=== PATIENT | male | born 1965 | race Caucasian/White ===

== ENCOUNTER → 2021-06-19 14:02 | Outpatient (CLI) | payer OTHER, MEDICAID, SELFPAY ==
--- NOTE | 2021-06-19 14:04 | DI.RAD.S_ITS ---
PROCEDURE: XR LUMBAR SPINE 2-3V INDICATIONS: left hip and back pain TECHNIQUE: 3 views of the lumbar spine were acquired. COMPARISON: None. FINDINGS: Bones: 5 [id number] vertebrae are present. Trace multilevel retrolisthesis. Multilevel disc degeneration, severe at the L5-S1 level. Mild L4-L5 and L5-S1 facet joint arthropathy. No vertebral body compression fractures. Minor chronic appearing degenerative anterior wedge deformity of L1. No suspicious bony lesions. Soft tissues: Overlying bowel gas pattern is normal. No suspicious soft tissue calcifications. IMPRESSION: Multilevel spondylosis, with severe disc degeneration at the L5-S1 level. Dictated by: Parker Campoverde [facility] Interpreted: Saige Hubbard MD on 06/19/2021 at 15:11 Transcribed by: HERSON on 06/19/2021 at 15:12 Approved by: Saige Hubbard M.D. on 06/19/2021 at 17:52
--- NOTE | 2021-06-19 14:04 | DI.RAD.S_ITS ---
PROCEDURE: XR HIP W PEL IF DONE LT 2V INDICATIONS: left hip and back pain TECHNIQUE: AP pelvis with lateral view(s) of the left hip(s). COMPARISON: [facility], , XR LUMBAR SPINE 2-3V, 06/19/2021, 14:02. FINDINGS: Bones: No fractures or dislocations. Pelvic ring appears intact. No suspicious bony lesions. There is severe narrowing of the left hip joint with near bone on bone contact, subchondral sclerosis and cystic change. Periarticular osteophyte formation is present. Mild right hip joint space narrowing. Degenerative disc and facet disease involves the inferior lumbar spine. Soft tissues: The visualized bowel gas pattern is normal. No suspicious soft tissue calcifications. IMPRESSION: Severe asymmetric left hip joint degeneration. Dictated by: Parker Campoverde [facility] Interpreted: Saige Hubbard MD on 06/19/2021 at 15:01 Transcribed by: HERSON on 06/19/2021 at 15:01 Approved by: Saige Hubbard M.D. on 06/19/2021 at 17:51
== END ==
PROVIDERS: PCP Family Medicine; Referring Provider Family Medicine; Visit Provider Family Medicine
DX: M25.552 Pain in left hip (principal); M54.5 Low back pain; M16.12 Unilateral primary osteoarthritis, left hip; M47.816 Spondylosis without myelopathy or radiculopathy, lumbar region; M47.817 Spondylosis without myelopathy or radiculopathy, lumbosacral region; M51.36 Other intervertebral disc degeneration, lumbar region
CPT/HCPCS: 72100; 73502

== ENCOUNTER → 2021-06-20 07:27 | Outpatient (CLI) | payer OTHER, MEDICAID, SELFPAY ==
[2021-06-20 08:11] LABS: Add Manual Diff / Slide Review NO; Basophils Absolute Auto 0 /uL (0-100); Basophils Percent Auto 0.4 % (0-2); Eosinophils Absolute Auto 100 /uL (0-450); Eosinophils Percent Auto 2.1 % (2-4); Hematocrit 45.2 % (41-53); Hemoglobin 14.4 g/dL (13.5-17.5); Lymphocytes Absolute Auto 1800 /uL (1100-4500); Lymphocytes Percent Auto 26.2 % (25-40); Mean Corpuscular HGB Conc 31.8 % (30-36); Mean Corpuscular Hemoglobin 25.9 PG (26-34); Mean Corpuscular Volume 81.6 fL (80-100); Monocytes Absolute Auto 500 /uL (0-900); Monocytes Percent Auto 7.7 % (3-14); Neutrophils Absolute Auto 4400 /uL (1500-7000); Neutrophils Percent Auto 63.6 % (50-75); Platelet Count 249 X10^3/uL (150-400); Red Blood Cell Count 5.54 X10^6/uL (4.5-5.9); Red Cell Distribution Width 13.4 % (11.6-14.8); White Blood Cell Count 6.9 X10^3/uL (4.5-11.0)
[2021-06-20 08:25] LABS: Alanine Aminotransferase 20 IU/L (<50); Albumin 4.7 g/dL (3.5-5.0); Albumin Globulin Ratio 1.5 (1.0-2.8); Alkaline Phosphatase 81 U/L (38-126); Aspartate Aminotransferase 27 IU/L (17-59); BUN Creatinine Ratio 23.8 (6-22); Bilirubin Total 0.7 mg/dL (0.2-1.3); Blood Urea Nitrogen 19 mg/dL (9-20); Calcium 10.1 mg/dL (8.4-10.2); Carbon Dioxide 30 mmol/L (22-32); Chloride 106 mmol/L (98-107); Cholesterol 178 mg/dL (140-199); Estimated Glomerular Filt Rate > 60.0 mL/min (>60); Globulin 3.2 g/dL (1.7-4.1); Glucose 98 mg/dL (70-100); HDL Cholesterol 44 mg/dL (40-60); HEMOLYSIS < 15 (0-50); LDL Cholesterol Calculated 109 mg/dL (<100); Potassium 4.8 mmol/L (3.4-5.1); Sodium 143 mmol/L (137-145); Total Protein 7.9 g/dL (6.3-8.2); Triglycerides 126 mg/dL (35-150)
[2021-06-20 08:55] LABS: Prostate Specific Antigen Scrn 1.21 ng/mL (0.1-4.0)
== END ==
PROVIDERS: PCP Family Medicine; Referring Provider Family Medicine; Visit Provider Family Medicine
DX: B00.9 Herpesviral infection, unspecified (principal); J30.2 Other seasonal allergic rhinitis; Z12.5 Encounter for screening for malignant neoplasm of prostate; Z13.220 Encounter for screening for lipoid disorders
CPT/HCPCS: 36415; 80053; 80061; 85025; G0103

== ENCOUNTER 2021-08-19 11:15 | Outpatient (RCR) | payer OTHER, MEDICAID, SELFPAY ==
--- NOTE | 2021-07-12 15:54 | PT.OIE ---
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 Seasonal allergies Past Surgical History (Last Updated 06/20/21 @ 13:52 by Jody Hennessy) Anesthesia History of appendectomy (~1995) History of carpal tunnel release (~1991) Visit Care Team Role Provider Type Boubacar Coffman MD Attending Provider Physician Family Provider Primary Care Provider Referring Provider Specialty: Family Practice Address: [address] [place] [address] Email: [email or web address] Physical Therapy Initial Evaluation PT-OP-A Visit Information Start: 07/12/21 13:57 Freq: Status: Active Protocol: Document 07/12/21 15:30 HH (Rec: 07/12/21 15:54 [email or web address]) Out-Patient Physical Therapy Visit Information Visit Information Visit Type Initial Evaluation Visit Start Time 14:30 Visit Stop Time 15:30 Total Visit Minutes 60 Visit Number 1/ Number of ROAD WORKER Visits 0 Evaluation Information Evaluation Date 07/12/21 PT-OP-B Current Condition Start: 07/12/21 13:57 Freq: Status: Active Protocol: Document 07/12/21 15:30 HH (Rec: 07/12/21 15:54 [email or web address]) Current Condition History of Current Condition Onset Date many years ago Current Complaints L hip pain, difficulty in walking History of Current Condition Yung is a 55 yo male here for his chronic L hip pain. 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 Pt stated his pain started many years ago but significantly getting worse since last year. He has severe pressure and pinching pain 7- 8/10 anterior and lateral side of the hip. He cannot lift his leg to get in/out of the car, difficulty with sit to stand and pain with WB activities. He is currently using a SPC to walk and taking Meloxican for night pain. Prior Treatments and Tests x-ray @ l hip IMPRESSION: Severe asymmetric left hip joint degeneration. x-ray @L/S IMPRESSION: Multilevel spondylosis, with severe disc degeneration at the L5-S1 level. Future Testing and Treatments Planned pt will consult orthopedic surgeon in 07/31 PT-OP-C Subjective Start: 07/12/21 13:57 Freq: Status: Active Protocol: Document 07/12/21 15:30 HH (Rec: 07/12/21 15:54 HH [email or web address]) Patient Questionnaires Lower Extremity Functional Scale LEFS Score 23 LEFS Impairment 60 to 79% Impaired (Score 17- 31) Oswestry Low Back Index Oswestry Score 46 Oswestry Impairment 40 to 59% Impaired (Score 40- 59) OP-PT Pain Assessment Location L hip Pain Location Details anterior and lateral Intensity 7 Scale Used Numeric (0 - 10) Description Aching,Dull,Pinching,Pressure, Sharp Frequency Constant Pain Aggravating Factors ADL's,Activity,Exercise, Standing,Walking,Stair Climbing,Bending,Lifting Pain Alleviating Factors Inactivity,Position,Sitting PT-OP-D Balance Start: 07/12/21 13:57 Freq: Status: Active Protocol: Document 07/12/21 15:30 HH (Rec: 07/12/21 15:54 HH [email or web address]) Balance Tests Single Limb Standing Single Limb- Right WFL Single Limb- Left WFL PT-OP-E Functional Tests Start: 07/12/21 13:57 Freq: Status: Active Protocol: Document 07/12/21 15:30 HH (Rec: 07/12/21 15:54 [email or web address]) Functional Tests Other sit to stand Name of Test with SPC on R Comment UE push off from chair armrest and SPC to stand up PT-OP-F Manual Assessment Start: 07/12/21 13:57 Freq: Status: Active Protocol: Document 07/12/21 15:30 HH (Rec: 07/12/21 15:54 [email or web address]) Manual Assessments Soft Tissue Assessment Soft Tissue Mobility Assessment L glutes, quads and gastro complex muscle atrophy. Joint Mobility Assessment Joint Mobility Assessment significant muscle guarding noted with passive motion. PT-OP-G Mobility & Gait Start: 07/12/21 13:57 Freq: Status: Active Protocol: Document 07/12/21 15:30 HH (Rec: 07/12/21 15:54 [email or web address]) OP Gait Assessment Assistive Devices Assistive Device Straight Cane Factors Limiting Gait Function Factors Limiting Gait Function Decreased Activity Tolerance, Decreased Strength,Limited Range of Motion,Pain,Poor Balance Comments Gait Comments walk with flexed posture and WBOS (feet last turner) PT-OP-K Range of Motion Start: 07/12/21 13:57 Freq: Status: Active Protocol: Document 07/12/21 15:30 HH (Rec: 07/12/21 15:54 [email or web address]) Hip Goniometric Range of Motion Hip Right Passive Hip ROM WFL Yes Testing Position Supine Flexion w/Knee Flexed 110 Straight Leg Raise 75 Extension 22 Abduction 34 Internal Rotation 28 External Rotation 45 Left Passive Hip ROM WFL No Testing Position Supine Flexion w/Knee Flexed 90 Straight Leg Raise 25 Extension 6 Abduction 18 Internal Rotation 12 External Rotation 30 Comments pain with all ROM Hip ROM Limitations Hip ROM Limitations Soft Tissue Tightness,Muscle Weakness,Pain PT-OP-L Special Tests Start: 07/12/21 13:57 Freq: Status: Active Protocol: Document 07/12/21 15:30 HH (Rec: 07/12/21 15:54 [email or web address]) Special Tests Hip Special Tests LLD Comments LLE = 1/2 inch shorter hip traction Comments decreased pain noted. MARTHA Test Results +VE Scour Test Test Results +VE Straight Leg Raise Test Results +VE PT-OP-M Strength Start: 07/12/21 13:57 Freq: Status: Active Protocol: Document 07/12/21 15:30 HH (Rec: 07/12/21 15:54 [email or web address]) Hip Strength Hip Manual Muscle Testing Right Flexion (L2) 5 Normal Extension (S1) 5 Normal Abduction 5 Normal Adduction 5 Normal Left Flexion (L2) 2+ Poor+ Extension (S1) 3- Fair- Abduction 3- Fair- Adduction 3- Fair- Knee Strength Knee Manual Muscle Testing Right Flexion (S2) 5 Normal Extension (L3) 5 Normal Left Flexion (S2) 4- Good- Extension (L3) 4- Good- Ankle/Foot Strength Ankle and Foot Manual Muscle Testing Right Dorsiflexion (L4) 5 Normal Plantarflexion (S1) 5 Normal Left Dorsiflexion (L4) 4 Good Plantarflexion (S1) 4 Good PT-OP-Q Treatments Start: 07/12/21 13:57 Freq: Status: Active Protocol: Document 07/12/21 15:30 HH (Rec: 07/12/21 15:54 HH [email or web address]) Therapeutic Exercises Supine Exercises glute and quad set Side left Reps/Minutes 5 sec hold x 5 Comments for HEP heel slide Side left Reps/Minutes 5 x2 Comments for HEP, no discomfort mick stretch Side left Reps/Minutes 15 s hold x5 Comments PT assisted, for HEP Manual Therapy Treatment Joint Mobilizations L hip Direction inferior then lateral Grade IV Body Position Supine Comments reports good relief PT-OP-T Assessment and Plan Start: 07/12/21 13:57 Freq: Status: Active Protocol: Document 07/12/21 15:30 HH (Rec: 07/12/21 15:54 [email or web address]) Physical Therapy Assessment Rehab Potential Rehabilitation Potential Good Evaluation Complexity Number of Personal Factors/Comorbidities 1-2 Number of Body Systems Impaired 1-2 Clinical Presentation at Evaluation Stable Impairments Impairments Activity Tolerance,Balance, Functional Activities, Functional Mobility,Gait,Pain, Posture,ROM,Soft Tissue Mobility,Strength,Transfers Goals pain Impairment unable to lift his L leg up Short Term Goal (STG) pt will show improved 1/2 MMT for L hip strength so he can lift his leg up for stair climbing with step over pattern STG Duration 4 weeks Cleaning Technician Goal (LTG) pt will show improved 1 MMT for L hip strength so he can lift his leg over to get in/ over of his car LTG Duration 8 weeks gait Impairment pt uses SPC to amb Short Term Goal (STG) pt will be able to walk in the house without use of SPC STG Duration 4 weeks [facility]cf Goal (LTG) pt will be able to walk in the house and community without use of SPC LTG Duration 8 weeks LEFS Impairment pt scores 26 on LEFS Short Term Goal (STG) pt will be able to score 40 on LEFS to show improved mobility and strength STG Duration 4 weeks Cleaning Technician Goal (LTG) pt will be able to score 50 on LEFS to show improved mobility and strength LTG Duration 8 weeks Assessment Summary Assessment Yung is a 55yo male here for his chronic L hip pain. Upon assessment, pt's symptoms align with his severe hip OA from his X-ray finding. He has very limited hip ROM in all planes and weak LLE strength with obvious muscle atrophy. He does respond well with relief to L hip traction and joint mob during this session. Plan of care for Yung will be increasing L hip ROM, along with low impact strengthening ther-ex to improve his functional mobility and strength. However, due to his very easily irritable L hip , pt might need to consider joint replacement if conservative treatment fails. Physical Therapy Plan Frequency and Duration Frequency of Treatment 2x/Week Duration of Treatment 8 weeks Plan of Care Start Date 07/12/21 Plan of Care End Date 09/10/21 Therapeutic Interventions Therapeutic Interventions Aquatic Therapy,Balance Training,Gait Training,Home Exercise Program,Joint Mobilizations,Manual Therapy, Neuromuscular Re-education, Patient/Caregiver Education, Self-Care/Home Management,Soft Tissue Mobilization,Taping, Therapeutic Activities, Therapeutic Exercises Modalities Cold Pack/Ice Massage,Electric Stimulation,Hot Packs, Infrared Therapy,Iontophoresis ,Paraffin Bath,Traction- Mechanical,Ultrasound Next Visit Focus/Plan Next Note Type Treatment Note Next Visit Plan review hip stretches isometric hip add/abd LAQ, HS curl bridging biking
--- NOTE | 2021-07-12 15:55 | PT.OPPOC ---
Physical, Occupational & Speech Therapy At [facility] Current Diagnoses Pain in left hip (07/12/21) Low back pain (07/12/21) Visit Care Team Role Provider Type Boubacar Coffman MD Attending Provider Physician Family Provider Primary Care Provider Referring Provider Specialty: Family Practice Address: [address] [place] [address] Email: [email or web address] Plan Of Care PT-OP-T Assessment and Plan Start: 07/12/21 13:57 Freq: Status: Active Protocol: Document 07/12/21 15:30 HH (Rec: 07/12/21 15:54 HH [email or web address]) Physical Therapy Assessment Rehab Potential Rehabilitation Potential Good Evaluation Complexity Number of Personal Factors/Comorbidities 1-2 Number of Body Systems Impaired 1-2 Clinical Presentation at Evaluation Stable Impairments Impairments Activity Tolerance,Balance, Functional Activities, Functional Mobility,Gait,Pain, Posture,ROM,Soft Tissue Mobility,Strength,Transfers Goals pain Impairment unable to lift his L leg up Short Term Goal (STG) pt will show improved 1/2 MMT for L hip strength so he can lift his leg up for stair climbing with step over pattern STG Duration 4 weeks Milk Pasteurizer Goal (LTG) pt will show improved 1 MMT for L hip strength so he can lift his leg over to get in/ over of his car LTG Duration 8 weeks gait Impairment pt uses SPC to amb Short Term Goal (STG) pt will be able to walk in the house without use of SPC STG Duration 4 weeks Milk Pasteurizer Goal (LTG) pt will be able to walk in the house and community without use of SPC LTG Duration 8 weeks LEFS Impairment pt scores 26 on LEFS Short Term Goal (STG) pt will be able to score 40 on LEFS to show improved mobility and strength STG Duration 4 weeks Intermediate Goal (LTG) pt will be able to score 50 on LEFS to show improved mobility and strength LTG Duration 8 weeks Assessment Summary Assessment Yung is a 55yo male here for his chronic L hip pain. Upon assessment, pt's symptoms align with his severe hip OA from his X-ray finding. He has very limited hip ROM in all planes and weak LLE strength with obvious muscle atrophy. He does respond well with relief to L hip traction and joint mob during this session. Plan of care for Yung will be increasing L hip ROM, along with low impact strengthening ther-ex to improve his functional mobility and strength. However, due to his very easily irritable L hip , pt might need to consider joint replacement if conservative treatment fails. Physical Therapy Plan Frequency and Duration Frequency of Treatment 2x/Week Duration of Treatment 8 weeks Plan of Care Start Date 07/12/21 Plan of Care End Date 09/10/21 Therapeutic Interventions Therapeutic Interventions Aquatic Therapy,Balance Training,Gait Training,Home Exercise Program,Joint Mobilizations,Manual Therapy, Neuromuscular Re-education, Patient/Caregiver Education, Self-Care/Home Management,Soft Tissue Mobilization,Taping, Therapeutic Activities, Therapeutic Exercises Modalities Cold Pack/Ice Massage,Electric Stimulation,Hot Packs, Infrared Therapy,Iontophoresis ,Paraffin Bath,Traction- Mechanical,Ultrasound Next Visit Focus/Plan Next Note Type Treatment Note Next Visit Plan review hip stretches isometric hip add/abd LAQ, HS curl bridging biking Plan of Care Dates Plan of Care Start Date 07/12/21 Plan of Care End Date 09/10/21 Electronically Signed by: Zoie Villegas PT 07/12/21 [id number] Please Sign and Return: I have reviewed this Plan of Care and certify that the skilled therapy services above are required to meet the patient?s needs. Physician Signature Date Printed Name and Credentials Clinical Instructor Signature Printed Name and Credentials
--- NOTE | 2021-07-15 11:17 | PT.OTN ---
Current Diagnoses Pain in left hip (07/15/21) Low back pain (07/15/21) Physical Therapy Treatment Note PT-OP-A Visit Information Start: 07/12/21 13:57 Freq: Status: Active Protocol: Document 07/15/21 10:33 HH (Rec: 07/15/21 11:17 [id number]) Out-Patient Physical Therapy Visit Information Visit Information Visit Type Treatment Note Visit Note pt is going to see orthopedist on 07/30 Visit Start Time 10:32 Visit Stop Time 11:15 Total Visit Minutes 43 Visit Number 2/9 Number of WIRELINE SUPERVISOR Visits 0 PT-OP-B Current Condition Start: 07/12/21 13:57 Freq: Status: Active Protocol: Document 07/12/21 15:30 HH (Rec: 07/12/21 15:54 HH [email or web address]) Current Condition History of Current Condition Onset Date many years ago Current Complaints L hip pain, difficulty in walking History of Current Condition Yung is a 55 yo male here for his chronic L hip pain. 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 Pt stated his pain started many years ago but significantly getting worse since last year. He has severe pressure and pinching pain 7- 8/10 anterior and lateral side of the hip. He cannot lift his leg to get in/out of the car, difficulty with sit to stand and pain with WB activities. He is currently using a SPC to walk and taking Meloxican for night pain. Prior Treatments and Tests x-ray @ l hip IMPRESSION: Severe asymmetric left hip joint degeneration. x-ray @L/S IMPRESSION: Multilevel spondylosis, with severe disc degeneration at the L5-S1 level. Future Testing and Treatments Planned pt will consult orthopedic surgeon in 07/31 PT-OP-C Subjective Start: 07/12/21 13:57 Freq: Status: Active Protocol: Document 07/15/21 10:33 HH (Rec: 07/15/21 11:17 [id number]) OP-PT Subjective Patient Comments Patient Comments I felt pretty after last session even though there's some soreness but it was fine. But i did do a lot of steps yesterday so its a bit irritated. PT-OP-D Balance Start: 07/12/21 13:57 Freq: Status: Active Protocol: Document 07/12/21 15:30 HH (Rec: 07/12/21 15:54 [email or web address]) Balance Tests Single Limb Standing Single Limb- Right WFL Single Limb- Left WFL PT-OP-E Functional Tests Start: 07/12/21 13:57 Freq: Status: Active Protocol: Document 07/12/21 15:30 HH (Rec: 07/12/21 15:54 [email or web address]) Functional Tests Other sit to stand Name of Test with SPC on R Comment UE push off from chair armrest and SPC to stand up PT-OP-F Manual Assessment Start: 07/12/21 13:57 Freq: Status: Active Protocol: Document 07/12/21 15:30 HH (Rec: 07/12/21 15:54 [email or web address]) Manual Assessments Soft Tissue Assessment Soft Tissue Mobility Assessment L glutes, quads and gastro complex muscle atrophy. Joint Mobility Assessment Joint Mobility Assessment significant muscle guarding noted with passive motion. PT-OP-G Mobility & Gait Start: 07/12/21 13:57 Freq: Status: Active Protocol: Document 07/12/21 15:30 HH (Rec: 07/12/21 15:54 [email or web address]) OP Gait Assessment Assistive Devices Assistive Device Straight Cane Factors Limiting Gait Function Factors Limiting Gait Function Decreased Activity Tolerance, Decreased Strength,Limited Range of Motion,Pain,Poor Balance Comments Gait Comments walk with flexed posture and WBOS (feet returned telephone equipment appraiser) PT-OP-K Range of Motion Start: 07/12/21 13:57 Freq: Status: Active Protocol: Document 07/12/21 15:30 HH (Rec: 07/12/21 15:54 [email or web address]) Hip Goniometric Range of Motion Hip Right Passive Hip ROM WFL Yes Testing Position Supine Flexion w/Knee Flexed 110 Straight Leg Raise 75 Extension 22 Abduction 34 Internal Rotation 28 External Rotation 45 Left Passive Hip ROM WFL No Testing Position Supine Flexion w/Knee Flexed 90 Straight Leg Raise 25 Extension 6 Abduction 18 Internal Rotation 12 External Rotation 30 Comments pain with all ROM Hip ROM Limitations Hip ROM Limitations Soft Tissue Tightness,Muscle Weakness,Pain PT-OP-L Special Tests Start: 07/12/21 13:57 Freq: Status: Active Protocol: Document 07/12/21 15:30 HH (Rec: 07/12/21 15:54 [email or web address]) Special Tests Hip Special Tests LLD Comments LLE = 1/2 inch shorter hip traction Comments decreased pain noted. MARTHA Test Results +VE Scour Test Test Results +VE Straight Leg Raise Test Results +VE PT-OP-M Strength Start: 07/12/21 13:57 Freq: Status: Active Protocol: Document 07/12/21 15:30 HH (Rec: 07/12/21 15:54 HH [email or web address]) Hip Strength Hip Manual Muscle Testing Right Flexion (L2) 5 Normal Extension (S1) 5 Normal Abduction 5 Normal Adduction 5 Normal Left Flexion (L2) 2+ Poor+ Extension (S1) 3- Fair- Abduction 3- Fair- Adduction 3- Fair- Knee Strength Knee Manual Muscle Testing Right Flexion (S2) 5 Normal Extension (L3) 5 Normal Left Flexion (S2) 4- Good- Extension (L3) 4- Good- Ankle/Foot Strength Ankle and Foot Manual Muscle Testing Right Dorsiflexion (L4) 5 Normal Plantarflexion (S1) 5 Normal Left Dorsiflexion (L4) 4 Good Plantarflexion (S1) 4 Good PT-OP-Q Treatments Start: 07/12/21 13:57 Freq: Status: Active Protocol: Document 07/15/21 10:33 HH (Rec: 07/15/21 11:17 [id number]) Cardio Equipment Recumbent Stepper (Sci-Fit) Duration (Minutes) 10 Resistance 2 Therapeutic Exercises Supine Exercises LTR Equipment Used ball squeez in between Reps/Minutes 10 x2 Comments for HEP hip abd Side left Reps/Minutes 10 x2 Comments for HEP glute and quad set Side left Reps/Minutes 5 sec hold x 5 Comments for HEP heel slide Side left Reps/Minutes 10x2 Comments for HEP, no discomfort mick stretch Side left Reps/Minutes 15 s hold x5 Comments PT assisted to lift back up to the table, for HEP Sitting Exercises LAQ Side bilateral Equipment Used red band at ankle Reps/Minutes 10 x2 Comments for HEP Manual Therapy Treatment Joint Mobilizations L hip Direction inferior then lateral Grade IV Body Position Supine Comments reports good relief PT-OP-T Assessment and Plan Start: 07/12/21 13:57 Freq: Status: Active Protocol: Document 07/15/21 10:33 HH (Rec: 07/15/21 11:17 [id number]) Physical Therapy Assessment Goals pain Impairment unable to lift his L leg up Short Term Goal (STG) pt will show improved 1/2 MMT for L hip strength so he can lift his leg up for stair climbing with step over pattern STG Duration 4 weeks Senior Living Goal (LTG) pt will show improved 1 MMT for L hip strength so he can lift his leg over to get in/ over of his car LTG Duration 8 weeks gait Impairment pt uses SPC to amb Short Term Goal (STG) pt will be able to walk in the house without use of SPC STG Duration 4 weeks Senior Living Goal (LTG) pt will be able to walk in the house and community without use of SPC LTG Duration 8 weeks LEFS Impairment pt scores 26 on LEFS Short Term Goal (STG) pt will be able to score 40 on LEFS to show improved mobility and strength STG Duration 4 weeks Senior Living Goal (LTG) pt will be able to score 50 on LEFS to show improved mobility and strength LTG Duration 8 weeks Assessment Summary Assessment First tx session today. Introduced gentle hip ROM in gravity eliminated position followed by stepper . He feels good at the end of session with no increase in pain. Physical Therapy Plan Frequency and Duration Frequency of Treatment 2x/Week Duration of Treatment 8 weeks Plan of Care Start Date 07/12/21 Plan of Care End Date 09/10/21 Therapeutic Interventions Therapeutic Interventions Aquatic Therapy,Balance Training,Gait Training,Home Exercise Program,Joint Mobilizations,Manual Therapy, Neuromuscular Re-education, Patient/Caregiver Education, Self-Care/Home Management,Soft Tissue Mobilization,Taping, Therapeutic Activities, Therapeutic Exercises Modalities Cold Pack/Ice Massage,Electric Stimulation,Hot Packs, Infrared Therapy,Iontophoresis ,Paraffin Bath,Traction- Mechanical,Ultrasound Next Visit Focus/Plan Next Note Type Treatment Note Next Visit Plan review hip stretches isometric hip add/abd LAQ, HS curl bridging biking
--- NOTE | 2021-07-18 13:47 | PT.OTN ---
Current Diagnoses Pain in left hip (07/18/21) Low back pain (07/18/21) Physical Therapy Treatment Note PT-OP-A Visit Information Start: 07/12/21 13:57 Freq: Status: Active Protocol: Document 07/18/21 12:59 HH (Rec: 07/18/21 13:47 [id number]) Out-Patient Physical Therapy Visit Information Visit Information Visit Type Treatment Note Visit Note pt is going to see orthopedist on 07/30 Visit Start Time 13:01 Visit Stop Time 13:45 Total Visit Minutes 44 Visit Number 3/9 Number of WARP TYING MACHINE KNOTTER Visits 0 PT-OP-B Current Condition Start: 07/12/21 13:57 Freq: Status: Active Protocol: Document 07/12/21 15:30 HH (Rec: 07/12/21 15:54 HH [email or web address]) Current Condition History of Current Condition Onset Date many years ago Current Complaints L hip pain, difficulty in walking History of Current Condition Yung is a 55 yo male here for his chronic L hip pain. 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 Pt stated his pain started many years ago but significantly getting worse since last year. He has severe pressure and pinching pain 7- 8/10 anterior and lateral side of the hip. He cannot lift his leg to get in/out of the car, difficulty with sit to stand and pain with WB activities. He is currently using a SPC to walk and taking Meloxican for night pain. Prior Treatments and Tests x-ray @ l hip IMPRESSION: Severe asymmetric left hip joint degeneration. x-ray @L/S IMPRESSION: Multilevel spondylosis, with severe disc degeneration at the L5-S1 level. Future Testing and Treatments Planned pt will consult orthopedic surgeon in 07/31 PT-OP-C Subjective Start: 07/12/21 13:57 Freq: Status: Active Protocol: Document 07/18/21 12:59 HH (Rec: 07/18/21 13:47 HH [id number]) OP-PT Subjective Patient Comments Patient Comments I feel pretty good from last visit and it seems to be not bad yesterday with standing for awhile. But i always notice getting up from seated position is tough Patient Reported Progress Improving PT-OP-D Balance Start: 07/12/21 13:57 Freq: Status: Active Protocol: Document 07/12/21 15:30 HH (Rec: 07/12/21 15:54 [email or web address]) Balance Tests Single Limb Standing Single Limb- Right WFL Single Limb- Left WFL PT-OP-E Functional Tests Start: 07/12/21 13:57 Freq: Status: Active Protocol: Document 07/12/21 15:30 HH (Rec: 07/12/21 15:54 [email or web address]) Functional Tests Other sit to stand Name of Test with SPC on R Comment UE push off from chair armrest and SPC to stand up PT-OP-F Manual Assessment Start: 07/12/21 13:57 Freq: Status: Active Protocol: Document 07/12/21 15:30 HH (Rec: 07/12/21 15:54 [email or web address]) Manual Assessments Soft Tissue Assessment Soft Tissue Mobility Assessment L glutes, quads and gastro complex muscle atrophy. Joint Mobility Assessment Joint Mobility Assessment significant muscle guarding noted with passive motion. PT-OP-G Mobility & Gait Start: 07/12/21 13:57 Freq: Status: Active Protocol: Document 07/12/21 15:30 HH (Rec: 07/12/21 15:54 [email or web address]) OP Gait Assessment Assistive Devices Assistive Device Straight Cane Factors Limiting Gait Function Factors Limiting Gait Function Decreased Activity Tolerance, Decreased Strength,Limited Range of Motion,Pain,Poor Balance Comments Gait Comments walk with flexed posture and WBOS (feet bottom turning lathe tender) PT-OP-K Range of Motion Start: 07/12/21 13:57 Freq: Status: Active Protocol: Document 07/12/21 15:30 HH (Rec: 07/12/21 15:54 [email or web address]) Hip Goniometric Range of Motion Hip Right Passive Hip ROM WFL Yes Testing Position Supine Flexion w/Knee Flexed 110 Straight Leg Raise 75 Extension 22 Abduction 34 Internal Rotation 28 External Rotation 45 Left Passive Hip ROM WFL No Testing Position Supine Flexion w/Knee Flexed 90 Straight Leg Raise 25 Extension 6 Abduction 18 Internal Rotation 12 External Rotation 30 Comments pain with all ROM Hip ROM Limitations Hip ROM Limitations Soft Tissue Tightness,Muscle Weakness,Pain PT-OP-L Special Tests Start: 07/12/21 13:57 Freq: Status: Active Protocol: Document 07/12/21 15:30 HH (Rec: 07/12/21 15:54 HH [email or web address]) Special Tests Hip Special Tests LLD Comments LLE = 1/2 inch shorter hip traction Comments decreased pain noted. MARTAH Test Results +VE Scour Test Test Results +VE Straight Leg Raise Test Results +VE PT-OP-M Strength Start: 07/12/21 13:57 Freq: Status: Active Protocol: Document 07/12/21 15:30 HH (Rec: 07/12/21 15:54 HH [email or web address]) Hip Strength Hip Manual Muscle Testing Right Flexion (L2) 5 Normal Extension (S1) 5 Normal Abduction 5 Normal Adduction 5 Normal Left Flexion (L2) 2+ Poor+ Extension (S1) 3- Fair- Abduction 3- Fair- Adduction 3- Fair- Knee Strength Knee Manual Muscle Testing Right Flexion (S2) 5 Normal Extension (L3) 5 Normal Left Flexion (S2) 4- Good- Extension (L3) 4- Good- Ankle/Foot Strength Ankle and Foot Manual Muscle Testing Right Dorsiflexion (L4) 5 Normal Plantarflexion (S1) 5 Normal Left Dorsiflexion (L4) 4 Good Plantarflexion (S1) 4 Good PT-OP-Q Treatments Start: 07/12/21 13:57 Freq: Status: Active Protocol: Document 07/18/21 12:59 HH (Rec: 07/18/21 13:47 HH [id number]) Cardio Equipment Recumbent Bicycle Resistance 5 Seat Position 5 Bicycle (Upright) Duration (Minutes) 4 Resistance 5 Seat Position 7 Therapeutic Exercises Supine Exercises leg curl Equipment Used red therapy ball Reps/Minutes 8 x2 Comments hip flexion up to 90 degrees. iso clamshell Resistance yellow band on knees Reps/Minutes 10s hold x 10 Comments no dsicomfort bridging Equipment Used yellow band on knees Reps/Minutes 5 sec hold x10 Comments no dsicomfort mick stretch Side left Reps/Minutes 15 s hold x5 Comments PT assisted to lift back up to the table, for HEP Sitting Exercises LAQ Side bilateral Equipment Used 10lbs ankle weight, Reps/Minutes 10 x2, 3 sec top Comments for HEP Manual Therapy Treatment Joint Mobilizations L hip Direction inferior then lateral Grade IV Body Position Supine Comments reports good relief PT-OP-T Assessment and Plan Start: 07/12/21 13:57 Freq: Status: Active Protocol: Document 07/18/21 12:59 HH (Rec: 07/18/21 13:47 HH [id number]) Physical Therapy Assessment Goals pain Impairment unable to lift his L leg up Short Term Goal (STG) pt will show improved 1/2 MMT for L hip strength so he can lift his leg up for stair climbing with step over pattern STG Duration 4 weeks Skilled Nursing Goal (LTG) pt will show improved 1 MMT for L hip strength so he can lift his leg over to get in/ over of his car LTG Duration 8 weeks gait Impairment pt uses SPC to amb Short Term Goal (STG) pt will be able to walk in the house without use of SPC STG Duration 4 weeks Engineer Specialist Goal (LTG) pt will be able to walk in the house and community without use of SPC LTG Duration 8 weeks LEFS Impairment pt scores 26 on LEFS Short Term Goal (STG) pt will be able to score 40 on LEFS to show improved mobility and strength STG Duration 4 weeks Skilled Nursing Goal (LTG) pt will be able to score 50 on LEFS to show improved mobility and strength LTG Duration 8 weeks Assessment Summary Assessment This session focused on activating hip stabilizers and quad strengthening. Pt meliza session well with report of hip got warmed up. Physical Therapy Plan Frequency and Duration Frequency of Treatment 2x/Week Duration of Treatment 8 weeks Plan of Care Start Date 07/12/21 Plan of Care End Date 09/10/21 Therapeutic Interventions Therapeutic Interventions Aquatic Therapy,Balance Training,Gait Training,Home Exercise Program,Joint Mobilizations,Manual Therapy, Neuromuscular Re-education, Patient/Caregiver Education, Self-Care/Home Management,Soft Tissue Mobilization,Taping, Therapeutic Activities, Therapeutic Exercises Modalities Cold Pack/Ice Massage,Electric Stimulation,Hot Packs, Infrared Therapy,Iontophoresis ,Paraffin Bath,Traction- Mechanical,Ultrasound Next Visit Focus/Plan Next Note Type Treatment Note Next Visit Plan review hip stretches isometric hip add/abd LAQ, HS curl bridging biking
--- NOTE | 2021-07-22 11:21 | PT.OTN ---
Current Diagnoses Pain in left hip (07/22/21) Low back pain (07/22/21) Physical Therapy Treatment Note PT-OP-A Visit Information Start: 07/12/21 13:57 Freq: Status: Active Protocol: Document 07/22/21 10:39 HH (Rec: 07/22/21 11:21 [id number]) Out-Patient Physical Therapy Visit Information Visit Information Visit Type Treatment Note Visit Note pt is going to see orthopedist on 07/30 Visit Start Time 10:33 Visit Stop Time 11:15 Total Visit Minutes 42 Visit Number 4/9 Number of [employer] CONSULTANT Visits 0 PT-OP-B Current Condition Start: 07/12/21 13:57 Freq: Status: Active Protocol: Document 07/12/21 15:30 HH (Rec: 07/12/21 15:54 HH [email or web address]) Current Condition History of Current Condition Onset Date many years ago Current Complaints L hip pain, difficulty in walking History of Current Condition Yung is a 55 yo male here for his chronic L hip pain. 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 Pt stated his pain started many years ago but significantly getting worse since last year. He has severe pressure and pinching pain 7- 8/10 anterior and lateral side of the hip. He cannot lift his leg to get in/out of the car, difficulty with sit to stand and pain with WB activities. He is currently using a SPC to walk and taking Meloxican for night pain. Prior Treatments and Tests x-ray @ l hip IMPRESSION: Severe asymmetric left hip joint degeneration. x-ray @L/S IMPRESSION: Multilevel spondylosis, with severe disc degeneration at the L5-S1 level. Future Testing and Treatments Planned pt will consult orthopedic surgeon in 07/31 PT-OP-C Subjective Start: 07/12/21 13:57 Freq: Status: Active Protocol: Document 07/22/21 10:39 HH (Rec: 07/22/21 11:21 HH [id number]) OP-PT Subjective Patient Comments Patient Comments My hip doesnt ache as much and i can walk longer. But i mistep once on Thursday that makes me having some night pain while sleep pain. Patient Reported Progress Improving PT-OP-D Balance Start: 07/12/21 13:57 Freq: Status: Active Protocol: Document 07/12/21 15:30 HH (Rec: 07/12/21 15:54 [email or web address]) Balance Tests Single Limb Standing Single Limb- Right WFL Single Limb- Left WFL PT-OP-E Functional Tests Start: 07/12/21 13:57 Freq: Status: Active Protocol: Document 07/12/21 15:30 HH (Rec: 07/12/21 15:54 [email or web address]) Functional Tests Other sit to stand Name of Test with SPC on R Comment UE push off from chair armrest and SPC to stand up PT-OP-F Manual Assessment Start: 07/12/21 13:57 Freq: Status: Active Protocol: Document 07/12/21 15:30 HH (Rec: 07/12/21 15:54 [email or web address]) Manual Assessments Soft Tissue Assessment Soft Tissue Mobility Assessment L glutes, quads and gastro complex muscle atrophy. Joint Mobility Assessment Joint Mobility Assessment significant muscle guarding noted with passive motion. PT-OP-G Mobility & Gait Start: 07/12/21 13:57 Freq: Status: Active Protocol: Document 07/12/21 15:30 HH (Rec: 07/12/21 15:54 [email or web address]) OP Gait Assessment Assistive Devices Assistive Device Straight Cane Factors Limiting Gait Function Factors Limiting Gait Function Decreased Activity Tolerance, Decreased Strength,Limited Range of Motion,Pain,Poor Balance Comments Gait Comments walk with flexed posture and WBOS (feet lathe turner) PT-OP-K Range of Motion Start: 07/12/21 13:57 Freq: Status: Active Protocol: Document 07/12/21 15:30 HH (Rec: 07/12/21 15:54 [email or web address]) Hip Goniometric Range of Motion Hip Right Passive Hip ROM WFL Yes Testing Position Supine Flexion w/Knee Flexed 110 Straight Leg Raise 75 Extension 22 Abduction 34 Internal Rotation 28 External Rotation 45 Left Passive Hip ROM WFL No Testing Position Supine Flexion w/Knee Flexed 90 Straight Leg Raise 25 Extension 6 Abduction 18 Internal Rotation 12 External Rotation 30 Comments pain with all ROM Hip ROM Limitations Hip ROM Limitations Soft Tissue Tightness,Muscle Weakness,Pain PT-OP-L Special Tests Start: 07/12/21 13:57 Freq: Status: Active Protocol: Document 07/12/21 15:30 HH (Rec: 07/12/21 15:54 [email or web address]) Special Tests Hip Special Tests LLD Comments LLE = 1/2 inch shorter hip traction Comments decreased pain noted. MARTHA Test Results +VE Scour Test Test Results +VE Straight Leg Raise Test Results +VE PT-OP-M Strength Start: 07/12/21 13:57 Freq: Status: Active Protocol: Document 07/12/21 15:30 HH (Rec: 07/12/21 15:54 HH [email or web address]) Hip Strength Hip Manual Muscle Testing Right Flexion (L2) 5 Normal Extension (S1) 5 Normal Abduction 5 Normal Adduction 5 Normal Left Flexion (L2) 2+ Poor+ Extension (S1) 3- Fair- Abduction 3- Fair- Adduction 3- Fair- Knee Strength Knee Manual Muscle Testing Right Flexion (S2) 5 Normal Extension (L3) 5 Normal Left Flexion (S2) 4- Good- Extension (L3) 4- Good- Ankle/Foot Strength Ankle and Foot Manual Muscle Testing Right Dorsiflexion (L4) 5 Normal Plantarflexion (S1) 5 Normal Left Dorsiflexion (L4) 4 Good Plantarflexion (S1) 4 Good PT-OP-Q Treatments Start: 07/12/21 13:57 Freq: Status: Active Protocol: Document 07/22/21 10:39 HH (Rec: 07/22/21 11:21 [id number]) Gym Equipment Shuttle Recovery SL squat Resistance #37 Shuttle Recovery Platform Stable Reps/Time 15 x2 Therapeutic Exercises Supine Exercises leg curl Supine Exercise Name unilateral Equipment Used blue therapy ball Reps/Minutes 10 x2 Comments hip flexion up to 90 degrees. hip abd Supine Exercise Name on blue therapy ball Side left Reps/Minutes 10 x2 Comments for HEP Sitting Exercises LAQ Side bilateral Equipment Used 10lbs ankle weight, Reps/Minutes 10 x2, 3 sec top Comments for HEP Manual Therapy Treatment Joint Mobilizations L hip Direction inferior then lateral Grade IV Body Position Supine Comments reports good relief PT-OP-T Assessment and Plan Start: 07/12/21 13:57 Freq: Status: Active Protocol: Document 07/22/21 10:39 HH (Rec: 07/22/21 11:21 [id number]) Physical Therapy Assessment Goals pain Impairment unable to lift his L leg up Short Term Goal (STG) pt will show improved 1/2 MMT for L hip strength so he can lift his leg up for stair climbing with step over pattern STG Duration 4 weeks Mcfp Goal (LTG) pt will show improved 1 MMT for L hip strength so he can lift his leg over to get in/ over of his car LTG Duration 8 weeks gait Impairment pt uses SPC to amb Short Term Goal (STG) pt will be able to walk in the house without use of SPC STG Duration 4 weeks Mcfp Goal (LTG) pt will be able to walk in the house and community without use of SPC LTG Duration 8 weeks LEFS Impairment pt scores 26 on LEFS Short Term Goal (STG) pt will be able to score 40 on LEFS to show improved mobility and strength STG Duration 4 weeks Elevator Starter Goal (LTG) pt will be able to score 50 on LEFS to show improved mobility and strength LTG Duration 8 weeks Assessment Summary Assessment Pt stated there's good progress since evaluation with improved activity tolerance and hip mobility. Progressed to unilateral hip mobility ex (with therapy ball) and leg press today. Physical Therapy Plan Frequency and Duration Frequency of Treatment 2x/Week Duration of Treatment 8 weeks Plan of Care Start Date 07/12/21 Plan of Care End Date 09/10/21 Therapeutic Interventions Therapeutic Interventions Aquatic Therapy,Balance Training,Gait Training,Home Exercise Program,Joint Mobilizations,Manual Therapy, Neuromuscular Re-education, Patient/Caregiver Education, Self-Care/Home Management,Soft Tissue Mobilization,Taping, Therapeutic Activities, Therapeutic Exercises Modalities Cold Pack/Ice Massage,Electric Stimulation,Hot Packs, Infrared Therapy,Iontophoresis ,Paraffin Bath,Traction- Mechanical,Ultrasound Next Visit Focus/Plan Next Note Type Treatment Note Next Visit Plan review hip stretches isometric hip add/abd LAQ, HS curl bridging biking
--- NOTE | 2021-07-24 10:33 | PT.OTN ---
Current Diagnoses Pain in left hip (07/24/21) Low back pain (07/24/21) Physical Therapy Treatment Note PT-OP-A Visit Information Start: 07/12/21 13:57 Freq: Status: Active Protocol: Document 07/24/21 09:48 HH (Rec: 07/24/21 10:33 [id number]) Out-Patient Physical Therapy Visit Information Visit Information Visit Type Treatment Note Visit Note pt is going to see orthopedist on 07/30 Visit Start Time 09:47 Visit Stop Time 10:30 Total Visit Minutes 43 Visit Number 5/9 Number of CIRCLE EDGER Visits 0 PT-OP-B Current Condition Start: 07/12/21 13:57 Freq: Status: Active Protocol: Document 07/12/21 15:30 HH (Rec: 07/12/21 15:54 HH [email or web address]) Current Condition History of Current Condition Onset Date many years ago Current Complaints L hip pain, difficulty in walking History of Current Condition Yung is a 55 yo male here for his chronic L hip pain. 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 Pt stated his pain started many years ago but significantly getting worse since last year. He has severe pressure and pinching pain 7- 8/10 anterior and lateral side of the hip. He cannot lift his leg to get in/out of the car, difficulty with sit to stand and pain with WB activities. He is currently using a SPC to walk and taking Meloxican for night pain. Prior Treatments and Tests x-ray @ l hip IMPRESSION: Severe asymmetric left hip joint degeneration. x-ray @L/S IMPRESSION: Multilevel spondylosis, with severe disc degeneration at the L5-S1 level. Future Testing and Treatments Planned pt will consult orthopedic surgeon in 07/31 PT-OP-C Subjective Start: 07/12/21 13:57 Freq: Status: Active Protocol: Document 07/24/21 09:48 HH (Rec: 07/24/21 10:33 [id number]) OP-PT Subjective Patient Comments Patient Comments I felt pretty good from last time and i didnt feel much on thursday morning which is surprising. It's getting better. Patient Reported Progress Improving PT-OP-D Balance Start: 07/12/21 13:57 Freq: Status: Active Protocol: Document 07/12/21 15:30 HH (Rec: 07/12/21 15:54 [email or web address]) Balance Tests Single Limb Standing Single Limb- Right WFL Single Limb- Left WFL PT-OP-E Functional Tests Start: 07/12/21 13:57 Freq: Status: Active Protocol: Document 07/12/21 15:30 HH (Rec: 07/12/21 15:54 [email or web address]) Functional Tests Other sit to stand Name of Test with SPC on R Comment UE push off from chair armrest and SPC to stand up PT-OP-F Manual Assessment Start: 07/12/21 13:57 Freq: Status: Active Protocol: Document 07/12/21 15:30 HH (Rec: 07/12/21 15:54 [email or web address]) Manual Assessments Soft Tissue Assessment Soft Tissue Mobility Assessment L glutes, quads and gastro complex muscle atrophy. Joint Mobility Assessment Joint Mobility Assessment significant muscle guarding noted with passive motion. PT-OP-G Mobility & Gait Start: 07/12/21 13:57 Freq: Status: Active Protocol: Document 07/12/21 15:30 HH (Rec: 07/12/21 15:54 [email or web address]) OP Gait Assessment Assistive Devices Assistive Device Straight Cane Factors Limiting Gait Function Factors Limiting Gait Function Decreased Activity Tolerance, Decreased Strength,Limited Range of Motion,Pain,Poor Balance Comments Gait Comments walk with flexed posture and WBOS (feet last turner) PT-OP-K Range of Motion Start: 07/12/21 13:57 Freq: Status: Active Protocol: Document 07/12/21 15:30 HH (Rec: 07/12/21 15:54 [email or web address]) Hip Goniometric Range of Motion Hip Right Passive Hip ROM WFL Yes Testing Position Supine Flexion w/Knee Flexed 110 Straight Leg Raise 75 Extension 22 Abduction 34 Internal Rotation 28 External Rotation 45 Left Passive Hip ROM WFL No Testing Position Supine Flexion w/Knee Flexed 90 Straight Leg Raise 25 Extension 6 Abduction 18 Internal Rotation 12 External Rotation 30 Comments pain with all ROM Hip ROM Limitations Hip ROM Limitations Soft Tissue Tightness,Muscle Weakness,Pain PT-OP-L Special Tests Start: 07/12/21 13:57 Freq: Status: Active Protocol: Document 07/12/21 15:30 HH (Rec: 07/12/21 15:54 [email or web address]) Special Tests Hip Special Tests LLD Comments LLE = 1/2 inch shorter hip traction Comments decreased pain noted. MARTHA Test Results +VE Scour Test Test Results +VE Straight Leg Raise Test Results +VE PT-OP-M Strength Start: 07/12/21 13:57 Freq: Status: Active Protocol: Document 07/12/21 15:30 HH (Rec: 07/12/21 15:54 HH [email or web address]) Hip Strength Hip Manual Muscle Testing Right Flexion (L2) 5 Normal Extension (S1) 5 Normal Abduction 5 Normal Adduction 5 Normal Left Flexion (L2) 2+ Poor+ Extension (S1) 3- Fair- Abduction 3- Fair- Adduction 3- Fair- Knee Strength Knee Manual Muscle Testing Right Flexion (S2) 5 Normal Extension (L3) 5 Normal Left Flexion (S2) 4- Good- Extension (L3) 4- Good- Ankle/Foot Strength Ankle and Foot Manual Muscle Testing Right Dorsiflexion (L4) 5 Normal Plantarflexion (S1) 5 Normal Left Dorsiflexion (L4) 4 Good Plantarflexion (S1) 4 Good PT-OP-Q Treatments Start: 07/12/21 13:57 Freq: Status: Active Protocol: Document 07/24/21 09:48 HH (Rec: 07/24/21 10:33 [id number]) Cardio Equipment Bicycle (Upright) Duration (Minutes) 7 Resistance 5 Seat Position 7 Gym Equipment Shuttle Recovery SL squat Resistance #37, #50 Shuttle Recovery Platform Stable Reps/Time 15 x2 Therapeutic Exercises Supine Exercises leg curl Supine Exercise Name unilateral Equipment Used blue therapy ball Reps/Minutes 10 x2 Comments hip flexion up to 90 degrees. bridging Equipment Used yellow band on knees Reps/Minutes 5 sec hold x10 Comments no dsicomfort hip abd Supine Exercise Name on blue therapy ball Side left Reps/Minutes 10 x2 Comments for HEP Sitting Exercises LAQ Side bilateral Equipment Used 10lbs ankle weight, Reps/Minutes 10 x2, 3 sec top Comments for HEP Manual Therapy Treatment Joint Mobilizations L hip Direction inferior then lateral Grade IV Body Position Supine Comments reports good relief PT-OP-T Assessment and Plan Start: 07/12/21 13:57 Freq: Status: Active Protocol: Document 07/24/21 09:48 HH (Rec: 07/24/21 10:33 [id number]) Physical Therapy Assessment Goals pain Impairment unable to lift his L leg up Short Term Goal (STG) pt will show improved 1/2 MMT for L hip strength so he can lift his leg up for stair climbing with step over pattern STG Duration 4 weeks Assisted Goal (LTG) pt will show improved 1 MMT for L hip strength so he can lift his leg over to get in/ over of his car LTG Duration 8 weeks gait Impairment pt uses SPC to amb Short Term Goal (STG) pt will be able to walk in the house without use of SPC STG Duration 4 weeks Assisted Goal (LTG) pt will be able to walk in the house and community without use of SPC LTG Duration 8 weeks LEFS Impairment pt scores 26 on LEFS Short Term Goal (STG) pt will be able to score 40 on LEFS to show improved mobility and strength STG Duration 4 weeks Assisted Goal (LTG) pt will be able to score 50 on LEFS to show improved mobility and strength LTG Duration 8 weeks Assessment Summary Assessment Pt reports improved stiffness and pain after last session. Modified his HEP today to improve muscle activation and strnegth. He meliza clamshell, bridging and leg curl well. Physical Therapy Plan Frequency and Duration Frequency of Treatment 2x/Week Duration of Treatment 8 weeks Plan of Care Start Date 07/12/21 Plan of Care End Date 09/10/21 Therapeutic Interventions Therapeutic Interventions Aquatic Therapy,Balance Training,Gait Training,Home Exercise Program,Joint Mobilizations,Manual Therapy, Neuromuscular Re-education, Patient/Caregiver Education, Self-Care/Home Management,Soft Tissue Mobilization,Taping, Therapeutic Activities, Therapeutic Exercises Modalities Cold Pack/Ice Massage,Electric Stimulation,Hot Packs, Infrared Therapy,Iontophoresis ,Paraffin Bath,Traction- Mechanical,Ultrasound Next Visit Focus/Plan Next Note Type Treatment Note Next Visit Plan review hip stretches isometric hip add/abd LAQ, HS curl bridging biking
--- NOTE | 2021-08-02 09:43 | PT.OTN ---
Current Diagnoses Pain in left hip (08/02/21) Low back pain (08/02/21) Physical Therapy Treatment Note PT-OP-A Visit Information Start: 07/12/21 13:57 Freq: Status: Active Protocol: Document 08/02/21 08:52 HH (Rec: 08/02/21 09:43 [id number]) Out-Patient Physical Therapy Visit Information Visit Information Visit Type Treatment Note Visit Note pt is going to see orthopedist on 07/30 Visit Start Time 09:47 Visit Stop Time 10:30 Total Visit Minutes 43 Visit Number 5/9 Number of NEMATOLOGIST Visits 0 PT-OP-B Current Condition Start: 07/12/21 13:57 Freq: Status: Active Protocol: Document 07/12/21 15:30 HH (Rec: 07/12/21 15:54 HH [email or web address]) Current Condition History of Current Condition Onset Date many years ago Current Complaints L hip pain, difficulty in walking History of Current Condition Yung is a 55 yo male here for his chronic L hip pain. 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 Pt stated his pain started many years ago but significantly getting worse since last year. He has severe pressure and pinching pain 7- 8/10 anterior and lateral side of the hip. He cannot lift his leg to get in/out of the car, difficulty with sit to stand and pain with WB activities. He is currently using a SPC to walk and taking Meloxican for night pain. Prior Treatments and Tests x-ray @ l hip IMPRESSION: Severe asymmetric left hip joint degeneration. x-ray @L/S IMPRESSION: Multilevel spondylosis, with severe disc degeneration at the L5-S1 level. Future Testing and Treatments Planned pt will consult orthopedic surgeon in 07/31 PT-OP-C Subjective Start: 07/12/21 13:57 Freq: Status: Active Protocol: Document 08/02/21 08:52 HH (Rec: 08/02/21 09:43 [id number]) OP-PT Subjective Patient Comments Patient Comments I saw Dr. Brantley and im going to get a cortisone injection next thursday. And possibly hip replacement in October. I do feel pretty good sometimes. Patient Reported Progress Improving PT-OP-D Balance Start: 07/12/21 13:57 Freq: Status: Active Protocol: Document 07/12/21 15:30 HH (Rec: 07/12/21 15:54 [email or web address]) Balance Tests Single Limb Standing Single Limb- Right WFL Single Limb- Left WFL PT-OP-E Functional Tests Start: 07/12/21 13:57 Freq: Status: Active Protocol: Document 07/12/21 15:30 HH (Rec: 07/12/21 15:54 [email or web address]) Functional Tests Other sit to stand Name of Test with SPC on R Comment UE push off from chair armrest and SPC to stand up PT-OP-F Manual Assessment Start: 07/12/21 13:57 Freq: Status: Active Protocol: Document 07/12/21 15:30 HH (Rec: 07/12/21 15:54 [email or web address]) Manual Assessments Soft Tissue Assessment Soft Tissue Mobility Assessment L glutes, quads and gastro complex muscle atrophy. Joint Mobility Assessment Joint Mobility Assessment significant muscle guarding noted with passive motion. PT-OP-G Mobility & Gait Start: 07/12/21 13:57 Freq: Status: Active Protocol: Document 07/12/21 15:30 HH (Rec: 07/12/21 15:54 [email or web address]) OP Gait Assessment Assistive Devices Assistive Device Straight Cane Factors Limiting Gait Function Factors Limiting Gait Function Decreased Activity Tolerance, Decreased Strength,Limited Range of Motion,Pain,Poor Balance Comments Gait Comments walk with flexed posture and WBOS (feet return to service inspector) PT-OP-K Range of Motion Start: 07/12/21 13:57 Freq: Status: Active Protocol: Document 07/12/21 15:30 HH (Rec: 07/12/21 15:54 [email or web address]) Hip Goniometric Range of Motion Hip Right Passive Hip ROM WFL Yes Testing Position Supine Flexion w/Knee Flexed 110 Straight Leg Raise 75 Extension 22 Abduction 34 Internal Rotation 28 External Rotation 45 Left Passive Hip ROM WFL No Testing Position Supine Flexion w/Knee Flexed 90 Straight Leg Raise 25 Extension 6 Abduction 18 Internal Rotation 12 External Rotation 30 Comments pain with all ROM Hip ROM Limitations Hip ROM Limitations Soft Tissue Tightness,Muscle Weakness,Pain PT-OP-L Special Tests Start: 07/12/21 13:57 Freq: Status: Active Protocol: Document 07/12/21 15:30 HH (Rec: 07/12/21 15:54 [email or web address]) Special Tests Hip Special Tests LLD Comments LLE = 1/2 inch shorter hip traction Comments decreased pain noted. MARTHA Test Results +VE Scour Test Test Results +VE Straight Leg Raise Test Results +VE PT-OP-M Strength Start: 07/12/21 13:57 Freq: Status: Active Protocol: Document 07/12/21 15:30 HH (Rec: 07/12/21 15:54 HH [email or web address]) Hip Strength Hip Manual Muscle Testing Right Flexion (L2) 5 Normal Extension (S1) 5 Normal Abduction 5 Normal Adduction 5 Normal Left Flexion (L2) 2+ Poor+ Extension (S1) 3- Fair- Abduction 3- Fair- Adduction 3- Fair- Knee Strength Knee Manual Muscle Testing Right Flexion (S2) 5 Normal Extension (L3) 5 Normal Left Flexion (S2) 4- Good- Extension (L3) 4- Good- Ankle/Foot Strength Ankle and Foot Manual Muscle Testing Right Dorsiflexion (L4) 5 Normal Plantarflexion (S1) 5 Normal Left Dorsiflexion (L4) 4 Good Plantarflexion (S1) 4 Good PT-OP-Q Treatments Start: 07/12/21 13:57 Freq: Status: Active Protocol: Document 08/02/21 08:52 HH (Rec: 08/02/21 09:43 [id number]) Cardio Equipment Bicycle (Upright) Duration (Minutes) 7 Resistance 5 Seat Position 7 Gym Equipment Shuttle Recovery SL squat Resistance #50 Shuttle Recovery Platform Stable Reps/Time 15 x3 Therapeutic Exercises Supine Exercises hip flexion Side left Reps/Minutes 8x2 Comments with knee bent, half range bridging Equipment Used yellow band on knees Reps/Minutes 5 sec hold x10 Comments no dsicomfort Sidelying Exercises clamshell Side left Reps/Minutes 10 x2 Comments for HEP. Sitting Exercises LAQ Side bilateral Equipment Used 10lbs ankle weight, Reps/Minutes 10 x2, 3 sec top Comments for HEP Standing Exercises uni hip extension Standing Exercise Name hands on table for support Side bilateral Reps/Minutes 10 x3 Comments for HEP Manual Therapy Treatment Joint Mobilizations L hip Direction inferior then lateral Grade IV Body Position Supine Comments reports good relief PT-OP-T Assessment and Plan Start: 07/12/21 13:57 Freq: Status: Active Protocol: Document 08/02/21 08:52 HH (Rec: 08/02/21 09:43 [id number]) Physical Therapy Assessment Goals pain Impairment unable to lift his L leg up Short Term Goal (STG) pt will show improved 1/2 MMT for L hip strength so he can lift his leg up for stair climbing with step over pattern STG Duration 4 weeks Mcc Goal (LTG) pt will show improved 1 MMT for L hip strength so he can lift his leg over to get in/ over of his car LTG Duration 8 weeks gait Impairment pt uses SPC to amb Short Term Goal (STG) pt will be able to walk in the house without use of SPC STG Duration 4 weeks Mcc Goal (LTG) pt will be able to walk in the house and community without use of SPC LTG Duration 8 weeks LEFS Impairment pt scores 26 on LEFS Short Term Goal (STG) pt will be able to score 40 on LEFS to show improved mobility and strength STG Duration 4 weeks Mcc Goal (LTG) pt will be able to score 50 on LEFS to show improved mobility and strength LTG Duration 8 weeks Assessment Summary Assessment pt will get a cortisone shot next week and possible THIAGO in October. He reports he does have less stiffness and more mobility sometimes which is helpful. Progress his hep to active hip flexion in supine and standing donkey kick. Physical Therapy Plan Frequency and Duration Frequency of Treatment 2x/Week Duration of Treatment 8 weeks Plan of Care Start Date 07/12/21 Plan of Care End Date 09/10/21 Therapeutic Interventions Therapeutic Interventions Aquatic Therapy,Balance Training,Gait Training,Home Exercise Program,Joint Mobilizations,Manual Therapy, Neuromuscular Re-education, Patient/Caregiver Education, Self-Care/Home Management,Soft Tissue Mobilization,Taping, Therapeutic Activities, Therapeutic Exercises Modalities Cold Pack/Ice Massage,Electric Stimulation,Hot Packs, Infrared Therapy,Iontophoresis ,Paraffin Bath,Traction- Mechanical,Ultrasound Next Visit Focus/Plan Next Note Type Treatment Note Next Visit Plan review hip stretches isometric hip add/abd LAQ, HS curl bridging biking
--- NOTE | 2021-08-07 12:09 | PT.OTN ---
Current Diagnoses Pain in left hip (08/07/21) Low back pain (08/07/21) Physical Therapy Treatment Note PT-OP-A Visit Information Start: 07/12/21 13:57 Freq: Status: Active Protocol: Document 08/02/21 08:52 HH (Rec: 08/02/21 09:43 [id number]) Out-Patient Physical Therapy Visit Information Visit Information Visit Type Treatment Note Visit Note pt is going to see orthopedist on 07/30 Visit Start Time 09:47 Visit Stop Time 10:30 Total Visit Minutes 43 Visit Number 5/9 Number of SPOT FACER Visits 0 PT-OP-B Current Condition Start: 07/12/21 13:57 Freq: Status: Active Protocol: Document 07/12/21 15:30 HH (Rec: 07/12/21 15:54 HH [email or web address]) Current Condition History of Current Condition Onset Date many years ago Current Complaints L hip pain, difficulty in walking History of Current Condition Yung is a 55 yo male here for his chronic L hip pain. 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 Pt stated his pain started many years ago but significantly getting worse since last year. He has severe pressure and pinching pain 7- 8/10 anterior and lateral side of the hip. He cannot lift his leg to get in/out of the car, difficulty with sit to stand and pain with WB activities. He is currently using a SPC to walk and taking Meloxican for night pain. Prior Treatments and Tests x-ray @ l hip IMPRESSION: Severe asymmetric left hip joint degeneration. x-ray @L/S IMPRESSION: Multilevel spondylosis, with severe disc degeneration at the L5-S1 level. Future Testing and Treatments Planned pt will consult orthopedic surgeon in 07/31 PT-OP-C Subjective Start: 07/12/21 13:57 Freq: Status: Active Protocol: Document 08/02/21 08:52 HH (Rec: 08/02/21 09:43 [id number]) OP-PT Subjective Patient Comments Patient Comments I saw Dr. Brantley and im going to get a cortisone injection next thursday. And possibly hip replacement in October. I do feel pretty good sometimes. Patient Reported Progress Improving PT-OP-D Balance Start: 07/12/21 13:57 Freq: Status: Active Protocol: Document 07/12/21 15:30 HH (Rec: 07/12/21 15:54 [email or web address]) Balance Tests Single Limb Standing Single Limb- Right WFL Single Limb- Left WFL PT-OP-E Functional Tests Start: 07/12/21 13:57 Freq: Status: Active Protocol: Document 07/12/21 15:30 HH (Rec: 07/12/21 15:54 [email or web address]) Functional Tests Other sit to stand Name of Test with SPC on R Comment UE push off from chair armrest and SPC to stand up PT-OP-F Manual Assessment Start: 07/12/21 13:57 Freq: Status: Active Protocol: Document 07/12/21 15:30 HH (Rec: 07/12/21 15:54 [email or web address]) Manual Assessments Soft Tissue Assessment Soft Tissue Mobility Assessment L glutes, quads and gastro complex muscle atrophy. Joint Mobility Assessment Joint Mobility Assessment significant muscle guarding noted with passive motion. PT-OP-G Mobility & Gait Start: 07/12/21 13:57 Freq: Status: Active Protocol: Document 07/12/21 15:30 HH (Rec: 07/12/21 15:54 [email or web address]) OP Gait Assessment Assistive Devices Assistive Device Straight Cane Factors Limiting Gait Function Factors Limiting Gait Function Decreased Activity Tolerance, Decreased Strength,Limited Range of Motion,Pain,Poor Balance Comments Gait Comments walk with flexed posture and WBOS (feet cross tie turner) PT-OP-K Range of Motion Start: 07/12/21 13:57 Freq: Status: Active Protocol: Document 07/12/21 15:30 HH (Rec: 07/12/21 15:54 [email or web address]) Hip Goniometric Range of Motion Hip Right Passive Hip ROM WFL Yes Testing Position Supine Flexion w/Knee Flexed 110 Straight Leg Raise 75 Extension 22 Abduction 34 Internal Rotation 28 External Rotation 45 Left Passive Hip ROM WFL No Testing Position Supine Flexion w/Knee Flexed 90 Straight Leg Raise 25 Extension 6 Abduction 18 Internal Rotation 12 External Rotation 30 Comments pain with all ROM Hip ROM Limitations Hip ROM Limitations Soft Tissue Tightness,Muscle Weakness,Pain PT-OP-L Special Tests Start: 07/12/21 13:57 Freq: Status: Active Protocol: Document 07/12/21 15:30 HH (Rec: 07/12/21 15:54 [email or web address]) Special Tests Hip Special Tests LLD Comments LLE = 1/2 inch shorter hip traction Comments decreased pain noted. MARTHA Test Results +VE Scour Test Test Results +VE Straight Leg Raise Test Results +VE PT-OP-M Strength Start: 07/12/21 13:57 Freq: Status: Active Protocol: Document 07/12/21 15:30 HH (Rec: 07/12/21 15:54 HH [email or web address]) Hip Strength Hip Manual Muscle Testing Right Flexion (L2) 5 Normal Extension (S1) 5 Normal Abduction 5 Normal Adduction 5 Normal Left Flexion (L2) 2+ Poor+ Extension (S1) 3- Fair- Abduction 3- Fair- Adduction 3- Fair- Knee Strength Knee Manual Muscle Testing Right Flexion (S2) 5 Normal Extension (L3) 5 Normal Left Flexion (S2) 4- Good- Extension (L3) 4- Good- Ankle/Foot Strength Ankle and Foot Manual Muscle Testing Right Dorsiflexion (L4) 5 Normal Plantarflexion (S1) 5 Normal Left Dorsiflexion (L4) 4 Good Plantarflexion (S1) 4 Good PT-OP-Q Treatments Start: 07/12/21 13:57 Freq: Status: Active Protocol: Document 08/02/21 08:52 HH (Rec: 08/02/21 09:43 [id number]) Cardio Equipment Bicycle (Upright) Duration (Minutes) 7 Resistance 5 Seat Position 7 Gym Equipment Shuttle Recovery SL squat Resistance #50 Shuttle Recovery Platform Stable Reps/Time 15 x3 Therapeutic Exercises Supine Exercises hip flexion Side left Reps/Minutes 8x2 Comments with knee bent, half range bridging Equipment Used yellow band on knees Reps/Minutes 5 sec hold x10 Comments no dsicomfort Sidelying Exercises clamshell Side left Reps/Minutes 10 x2 Comments for HEP. Sitting Exercises LAQ Side bilateral Equipment Used 10lbs ankle weight, Reps/Minutes 10 x2, 3 sec top Comments for HEP Standing Exercises uni hip extension Standing Exercise Name hands on table for support Side bilateral Reps/Minutes 10 x3 Comments for HEP Manual Therapy Treatment Joint Mobilizations L hip Direction inferior then lateral Grade IV Body Position Supine Comments reports good relief PT-OP-T Assessment and Plan Start: 07/12/21 13:57 Freq: Status: Active Protocol: Document 08/02/21 08:52 HH (Rec: 08/02/21 09:43 [id number]) Physical Therapy Assessment Goals pain Impairment unable to lift his L leg up Short Term Goal (STG) pt will show improved 1/2 MMT for L hip strength so he can lift his leg up for stair climbing with step over pattern STG Duration 4 weeks Long-Term Goal (LTG) pt will show improved 1 MMT for L hip strength so he can lift his leg over to get in/ over of his car LTG Duration 8 weeks gait Impairment pt uses SPC to amb Short Term Goal (STG) pt will be able to walk in the house without use of SPC STG Duration 4 weeks Long-Term Goal (LTG) pt will be able to walk in the house and community without use of SPC LTG Duration 8 weeks LEFS Impairment pt scores 26 on LEFS Short Term Goal (STG) pt will be able to score 40 on LEFS to show improved mobility and strength STG Duration 4 weeks Long-Term Goal (LTG) pt will be able to score 50 on LEFS to show improved mobility and strength LTG Duration 8 weeks Assessment Summary Assessment pt will get a cortisone shot next week and possible THIAGO in October. He reports he does have less stiffness and more mobility sometimes which is helpful. Progress his hep to active hip flexion in supine and standing donkey kick. Physical Therapy Plan Frequency and Duration Frequency of Treatment 2x/Week Duration of Treatment 8 weeks Plan of Care Start Date 07/12/21 Plan of Care End Date 09/10/21 Therapeutic Interventions Therapeutic Interventions Aquatic Therapy,Balance Training,Gait Training,Home Exercise Program,Joint Mobilizations,Manual Therapy, Neuromuscular Re-education, Patient/Caregiver Education, Self-Care/Home Management,Soft Tissue Mobilization,Taping, Therapeutic Activities, Therapeutic Exercises Modalities Cold Pack/Ice Massage,Electric Stimulation,Hot Packs, Infrared Therapy,Iontophoresis ,Paraffin Bath,Traction- Mechanical,Ultrasound Next Visit Focus/Plan Next Note Type Treatment Note Next Visit Plan review hip stretches isometric hip add/abd LAQ, HS curl bridging biking
--- NOTE | 2021-08-07 12:14 | PT.OTN ---
Current Diagnoses Pain in left hip (08/07/21) Low back pain (08/07/21) Physical Therapy Treatment Note PT-OP-A Visit Information Start: 07/12/21 13:57 Freq: Status: Active Protocol: Document 08/07/21 11:18 HH (Rec: 08/07/21 12:14 [id number]) Out-Patient Physical Therapy Visit Information Visit Information Visit Type Treatment Note Visit Note pt is going to see orthopedist on 07/30 Visit Start Time 11:16 Visit Stop Time 12:00 Total Visit Minutes 44 Visit Number 6/9 Number of WET SUIT GLUER Visits 0 PT-OP-B Current Condition Start: 07/12/21 13:57 Freq: Status: Active Protocol: Document 07/12/21 15:30 HH (Rec: 07/12/21 15:54 [email or web address]) Current Condition History of Current Condition Onset Date many years ago Current Complaints L hip pain, difficulty in walking History of Current Condition Yung is a 55 yo male here for his chronic L hip pain. 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 Pt stated his pain started many years ago but significantly getting worse since last year. He has severe pressure and pinching pain 7- 8/10 anterior and lateral side of the hip. He cannot lift his leg to get in/out of the car, difficulty with sit to stand and pain with WB activities. He is currently using a SPC to walk and taking Meloxican for night pain. Prior Treatments and Tests x-ray @ l hip IMPRESSION: Severe asymmetric left hip joint degeneration. x-ray @L/S IMPRESSION: Multilevel spondylosis, with severe disc degeneration at the L5-S1 level. Future Testing and Treatments Planned pt will consult orthopedic surgeon in 07/31 PT-OP-C Subjective Start: 07/12/21 13:57 Freq: Status: Active Protocol: Document 08/07/21 11:18 HH (Rec: 08/07/21 12:14 [id number]) OP-PT Subjective Patient Comments Patient Comments My hip is doing not bad. Clamshell and leg raise is hard cause i have no strength and limited range. Patient Reported Progress Same PT-OP-D Balance Start: 07/12/21 13:57 Freq: Status: Active Protocol: Document 07/12/21 15:30 HH (Rec: 07/12/21 15:54 HH [email or web address]) Balance Tests Single Limb Standing Single Limb- Right WFL Single Limb- Left WFL PT-OP-E Functional Tests Start: 07/12/21 13:57 Freq: Status: Active Protocol: Document 07/12/21 15:30 HH (Rec: 07/12/21 15:54 [email or web address]) Functional Tests Other sit to stand Name of Test with SPC on R Comment UE push off from chair armrest and SPC to stand up PT-OP-F Manual Assessment Start: 07/12/21 13:57 Freq: Status: Active Protocol: Document 07/12/21 15:30 HH (Rec: 07/12/21 15:54 [email or web address]) Manual Assessments Soft Tissue Assessment Soft Tissue Mobility Assessment L glutes, quads and gastro complex muscle atrophy. Joint Mobility Assessment Joint Mobility Assessment significant muscle guarding noted with passive motion. PT-OP-G Mobility & Gait Start: 07/12/21 13:57 Freq: Status: Active Protocol: Document 07/12/21 15:30 HH (Rec: 07/12/21 15:54 [email or web address]) OP Gait Assessment Assistive Devices Assistive Device Straight Cane Factors Limiting Gait Function Factors Limiting Gait Function Decreased Activity Tolerance, Decreased Strength,Limited Range of Motion,Pain,Poor Balance Comments Gait Comments walk with flexed posture and WBOS (feet turner off) PT-OP-K Range of Motion Start: 07/12/21 13:57 Freq: Status: Active Protocol: Document 07/12/21 15:30 HH (Rec: 07/12/21 15:54 [email or web address]) Hip Goniometric Range of Motion Hip Right Passive Hip ROM WFL Yes Testing Position Supine Flexion w/Knee Flexed 110 Straight Leg Raise 75 Extension 22 Abduction 34 Internal Rotation 28 External Rotation 45 Left Passive Hip ROM WFL No Testing Position Supine Flexion w/Knee Flexed 90 Straight Leg Raise 25 Extension 6 Abduction 18 Internal Rotation 12 External Rotation 30 Comments pain with all ROM Hip ROM Limitations Hip ROM Limitations Soft Tissue Tightness,Muscle Weakness,Pain PT-OP-L Special Tests Start: 07/12/21 13:57 Freq: Status: Active Protocol: Document 07/12/21 15:30 HH (Rec: 07/12/21 15:54 [email or web address]) Special Tests Hip Special Tests LLD Comments LLE = 1/2 inch shorter hip traction Comments decreased pain noted. MARTHA Test Results +VE Scour Test Test Results +VE Straight Leg Raise Test Results +VE PT-OP-M Strength Start: 07/12/21 13:57 Freq: Status: Active Protocol: Document 07/12/21 15:30 HH (Rec: 07/12/21 15:54 HH [email or web address]) Hip Strength Hip Manual Muscle Testing Right Flexion (L2) 5 Normal Extension (S1) 5 Normal Abduction 5 Normal Adduction 5 Normal Left Flexion (L2) 2+ Poor+ Extension (S1) 3- Fair- Abduction 3- Fair- Adduction 3- Fair- Knee Strength Knee Manual Muscle Testing Right Flexion (S2) 5 Normal Extension (L3) 5 Normal Left Flexion (S2) 4- Good- Extension (L3) 4- Good- Ankle/Foot Strength Ankle and Foot Manual Muscle Testing Right Dorsiflexion (L4) 5 Normal Plantarflexion (S1) 5 Normal Left Dorsiflexion (L4) 4 Good Plantarflexion (S1) 4 Good PT-OP-Q Treatments Start: 07/12/21 13:57 Freq: Status: Active Protocol: Document 08/07/21 11:18 HH (Rec: 08/07/21 12:14 [id number]) Cardio Equipment Bicycle (Upright) Duration (Minutes) 7 Resistance 5 Seat Position 7 Therapeutic Exercises Sidelying Exercises clamshell Side left Reps/Minutes 10 x2 Comments for HEP. Standing Exercises mini squat Standing Exercise Name chair + 4 inch box and blue foam Reps/Minutes 8 x2 Comments for HEP, min discomfort. hip mobilization Standing Exercise Name posterior glide and inferior glide Side left Reps/Minutes level 5 band Comments for home use uni hip extension Standing Exercise Name hands on table for support Side bilateral Reps/Minutes 10 x3 Comments for HEP Manual Therapy Treatment Joint Mobilizations L hip Direction inferior then lateral Grade IV Body Position Supine Comments reports good relief PT-OP-T Assessment and Plan Start: 07/12/21 13:57 Freq: Status: Active Protocol: Document 08/07/21 11:18 HH (Rec: 08/07/21 12:14 [id number]) Physical Therapy Assessment Goals pain Impairment unable to lift his L leg up Short Term Goal (STG) pt will show improved 1/2 MMT for L hip strength so he can lift his leg up for stair climbing with step over pattern STG Duration 4 weeks Net Mender Goal (LTG) pt will show improved 1 MMT for L hip strength so he can lift his leg over to get in/ over of his car LTG Duration 8 weeks gait Impairment pt uses SPC to amb Short Term Goal (STG) pt will be able to walk in the house without use of SPC STG Duration 4 weeks Net Mender Goal (LTG) pt will be able to walk in the house and community without use of SPC LTG Duration 8 weeks LEFS Impairment pt scores 26 on LEFS Short Term Goal (STG) pt will be able to score 40 on LEFS to show improved mobility and strength STG Duration 4 weeks Halfway Goal (LTG) pt will be able to score 50 on LEFS to show improved mobility and strength LTG Duration 8 weeks Assessment Summary Assessment pt reports his pain is mostly during his hip in FADDIR and full extension positions. Special test shows pt has possible anterior labral tear as well. Spent time educating pt to do self hip mobilization with resistance band. Added mini squat to improve his WB tolerance. Physical Therapy Plan Frequency and Duration Frequency of Treatment 2x/Week Duration of Treatment 8 weeks Plan of Care Start Date 07/12/21 Plan of Care End Date 09/10/21 Therapeutic Interventions Therapeutic Interventions Aquatic Therapy,Balance Training,Gait Training,Home Exercise Program,Joint Mobilizations,Manual Therapy, Neuromuscular Re-education, Patient/Caregiver Education, Self-Care/Home Management,Soft Tissue Mobilization,Taping, Therapeutic Activities, Therapeutic Exercises Modalities Cold Pack/Ice Massage,Electric Stimulation,Hot Packs, Infrared Therapy,Iontophoresis ,Paraffin Bath,Traction- Mechanical,Ultrasound Next Visit Focus/Plan Next Note Type Treatment Note Next Visit Plan review hip stretches isometric hip add/abd LAQ, HS curl bridging biking
--- NOTE | 2021-08-14 12:10 | PT.OTN ---
Current Diagnoses Pain in left hip (08/14/21) Low back pain (08/14/21) Physical Therapy Treatment Note PT-OP-A Visit Information Start: 07/12/21 13:57 Freq: Status: Active Protocol: Document 08/14/21 11:18 HH (Rec: 08/14/21 12:10 [id number]) Out-Patient Physical Therapy Visit Information Visit Information Visit Type Treatment Note Visit Start Time 11:17 Visit Stop Time 12:00 Total Visit Minutes 43 Visit Number 7/9 Number of [facility] Visits [facility] PT-OP-B Current Condition Start: 07/12/21 13:57 Freq: Status: Active Protocol: Document 07/12/21 15:30 HH (Rec: 07/12/21 15:54 [email or web address]) Current Condition History of Current Condition Onset Date many years ago Current Complaints L hip pain, difficulty in walking History of Current Condition Yung is a 55 yo male here for his chronic L hip pain. 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 Pt stated his pain started many years ago but significantly getting worse since last year. He has severe pressure and pinching pain 7- 8/10 anterior and lateral side of the hip. He cannot lift his leg to get in/out of the car, difficulty with sit to stand and pain with WB activities. He is currently using a SPC to walk and taking Meloxican for night pain. Prior Treatments and Tests x-ray @ l hip IMPRESSION: Severe asymmetric left hip joint degeneration. x-ray @L/S IMPRESSION: Multilevel spondylosis, with severe disc degeneration at the L5-S1 level. Future Testing and Treatments Planned pt will consult orthopedic surgeon in 07/31 PT-OP-C Subjective Start: 07/12/21 13:57 Freq: Status: Active Protocol: Document 08/14/21 11:18 HH (Rec: 08/14/21 12:10 [id number]) OP-PT Subjective Patient Comments Patient Comments I got the steroid shot on Thursday and i felt good for the first few days. But it was very painful during the weekend. But then i feel a little better now. Patient Reported Progress Same PT-OP-D Balance Start: 07/12/21 13:57 Freq: Status: Active Protocol: Document 07/12/21 15:30 HH (Rec: 07/12/21 15:54 [email or web address]) Balance Tests Single Limb Standing Single Limb- Right WFL Single Limb- Left WFL PT-OP-E Functional Tests Start: 07/12/21 13:57 Freq: Status: Active Protocol: Document 07/12/21 15:30 HH (Rec: 07/12/21 15:54 [email or web address]) Functional Tests Other sit to stand Name of Test with SPC on R Comment UE push off from chair armrest and SPC to stand up PT-OP-F Manual Assessment Start: 07/12/21 13:57 Freq: Status: Active Protocol: Document 07/12/21 15:30 HH (Rec: 07/12/21 15:54 [email or web address]) Manual Assessments Soft Tissue Assessment Soft Tissue Mobility Assessment L glutes, quads and gastro complex muscle atrophy. Joint Mobility Assessment Joint Mobility Assessment significant muscle guarding noted with passive motion. 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) PT-OP-K Range of Motion Start: 07/12/21 13:57 Freq: Status: Active Protocol: Document 07/12/21 15:30 HH (Rec: 07/12/21 15:54 [email or web address]) Hip Goniometric Range of Motion Hip Right Passive Hip ROM WFL Yes Testing Position Supine Flexion w/Knee Flexed 110 Straight Leg Raise 75 Extension 22 Abduction 34 Internal Rotation 28 External Rotation 45 Left Passive Hip ROM WFL No Testing Position Supine Flexion w/Knee Flexed 90 Straight Leg Raise 25 Extension 6 Abduction 18 Internal Rotation 12 External Rotation 30 Comments pain with all ROM Hip ROM Limitations Hip ROM Limitations Soft Tissue Tightness,Muscle Weakness,Pain PT-OP-L Special Tests Start: 07/12/21 13:57 Freq: Status: Active Protocol: Document 07/12/21 15:30 HH (Rec: 07/12/21 15:54 [email or web address]) Special Tests Hip Special Tests LLD Comments LLE = 1/2 inch shorter hip traction Comments decreased pain noted. MARTHA Test Results +VE Scour Test Test Results +VE Straight Leg Raise Test Results +VE PT-OP-M Strength Start: 07/12/21 13:57 Freq: Status: Active Protocol: Document 07/12/21 15:30 HH (Rec: 07/12/21 15:54 HH [email or web address]) Hip Strength Hip Manual Muscle Testing Right Flexion (L2) 5 Normal Extension (S1) 5 Normal Abduction 5 Normal Adduction 5 Normal Left Flexion (L2) 2+ Poor+ Extension (S1) 3- Fair- Abduction 3- Fair- Adduction 3- Fair- Knee Strength Knee Manual Muscle Testing Right Flexion (S2) 5 Normal Extension (L3) 5 Normal Left Flexion (S2) 4- Good- Extension (L3) 4- Good- Ankle/Foot Strength Ankle and Foot Manual Muscle Testing Right Dorsiflexion (L4) 5 Normal Plantarflexion (S1) 5 Normal Left Dorsiflexion (L4) 4 Good Plantarflexion (S1) 4 Good PT-OP-Q Treatments Start: 07/12/21 13:57 Freq: Status: Active Protocol: Document 08/14/21 11:18 HH (Rec: 08/14/21 12:10 [id number]) Cardio Equipment Bicycle (Upright) Duration (Minutes) 7 Resistance 5 Seat Position 7 Gym Equipment Shuttle Recovery SL squat Resistance #50 Shuttle Recovery Platform Stable Reps/Time 15 x3 Therapeutic Exercises Supine Exercises leg curl Supine Exercise Name unilateral Equipment Used blue therapy ball Reps/Minutes 10 x2 Comments hip flexion up to 90 degrees. Standing Exercises uni hip extension Standing Exercise Name hands on table for support, with hip abd Side bilateral Reps/Minutes 10 x3 Comments for HEP, cues on posterior pelvic tilt Manual Therapy Treatment Joint Mobilizations L hip Direction inferior then lateral Grade IV Body Position Supine Comments reports good relief PT-OP-T Assessment and Plan Start: 07/12/21 13:57 Freq: Status: Active Protocol: Document 08/14/21 11:18 HH (Rec: 08/14/21 12:10 [id number]) Physical Therapy Assessment Goals pain Impairment unable to lift his L leg up Short Term Goal (STG) pt will show improved 1/2 MMT for L hip strength so he can lift his leg up for stair climbing with step over pattern STG Duration 4 weeks [facility] Goal (LTG) pt will show improved 1 MMT for L hip strength so he can lift his leg over to get in/ over of his car LTG Duration 8 weeks gait Impairment pt uses SPC to amb Short Term Goal (STG) pt will be able to walk in the house without use of SPC STG Duration 4 weeks [facility] Goal (LTG) pt will be able to walk in the house and community without use of SPC LTG Duration 8 weeks LEFS Impairment pt scores 26 on LEFS Short Term Goal (STG) pt will be able to score 40 on LEFS to show improved mobility and strength STG Duration 4 weeks [facility] Goal (LTG) pt will be able to score 50 on LEFS to show improved mobility and strength LTG Duration 8 weeks Assessment Summary Assessment pt had his first cortisone shot last with good result so far. Added standing hip abduction today to his HEP . pt has good understanding with his HEP and progression so far and he believes he can continue on his own prior to his THIAGO in October. might consider DC next visit. Will provide preop THIAGO booklet next time. Physical Therapy Plan Frequency and Duration Frequency of Treatment 2x/Week Duration of Treatment 8 weeks Plan of Care Start Date 07/12/21 Plan of Care End Date 09/10/21 Therapeutic Interventions Therapeutic Interventions Aquatic Therapy,Balance Training,Gait Training,Home Exercise Program,Joint Mobilizations,Manual Therapy, Neuromuscular Re-education, Patient/Caregiver Education, Self-Care/Home Management,Soft Tissue Mobilization,Taping, Therapeutic Activities, Therapeutic Exercises Modalities Cold Pack/Ice Massage,Electric Stimulation,Hot Packs, Infrared Therapy,Iontophoresis ,Paraffin Bath,Traction- Mechanical,Ultrasound Next Visit Focus/Plan Next Note Type Treatment Note Next Visit Plan review hip stretches isometric hip add/abd LAQ, HS curl bridging biking
--- NOTE | 2021-08-19 12:09 | PT.OTN ---
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 Pt stated his pain started many years ago but significantly getting worse since last year. He has severe pressure and pinching pain 7- 8/10 anterior and lateral side of the hip. He cannot lift his leg to get in/out of the car, difficulty with sit to stand and pain with WB activities. He is currently using a SPC to walk and taking Meloxican for night pain. Prior Treatments and Tests x-ray @ l hip IMPRESSION: Severe asymmetric left hip joint degeneration. x-ray @L/S IMPRESSION: Multilevel spondylosis, with severe disc degeneration at the L5-S1 level. Future Testing and Treatments Planned pt will consult orthopedic surgeon in 07/31 PT-OP-C Subjective Start: 07/12/21 13:57 Freq: Status: Active Protocol: Document 08/19/21 11:17 HH (Rec: 08/19/21 12:09 [id number]) OP-PT Subjective Patient Comments Patient Comments I was feeling pretty good last session but then this weekend was pretty bad and stiff. Im not sure if the injection shot is lasting as long Patient Reported Progress Same PT-OP-D Balance Start: 07/12/21 13:57 Freq: Status: Active Protocol: Document 07/12/21 15:30 HH (Rec: 07/12/21 15:54 [email or web address]) Balance Tests Single Limb Standing Single Limb- Right WFL Single Limb- Left WFL PT-OP-E Functional Tests Start: 07/12/21 13:57 Freq: Status: Active Protocol: Document 07/12/21 15:30 HH (Rec: 07/12/21 15:54 [email or web address]) Functional Tests Other sit to stand Name of Test with SPC on R Comment UE push off from chair armrest and SPC to stand up PT-OP-F Manual Assessment Start: 07/12/21 13:57 Freq: Status: Active Protocol: Document 07/12/21 15:30 HH (Rec: 07/12/21 15:54 [email or web address]) Manual Assessments Soft Tissue Assessment Soft Tissue Mobility Assessment L glutes, quads and gastro complex muscle atrophy. Joint Mobility Assessment Joint Mobility Assessment significant muscle guarding noted with passive motion. 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) PT-OP-K Range of Motion Start: 07/12/21 13:57 Freq: Status: Active Protocol: Document 07/12/21 15:30 HH (Rec: 07/12/21 15:54 [email or web address]) Hip Goniometric Range of Motion Hip Right Passive Hip ROM WFL Yes Testing Position Supine Flexion w/Knee Flexed 110 Straight Leg Raise 75 Extension 22 Abduction 34 Internal Rotation 28 External Rotation 45 Left Passive Hip ROM WFL No Testing Position Supine Flexion w/Knee Flexed 90 Straight Leg Raise 25 Extension 6 Abduction 18 Internal Rotation 12 External Rotation 30 Comments pain with all ROM Hip ROM Limitations Hip ROM Limitations Soft Tissue Tightness,Muscle Weakness,Pain PT-OP-L Special Tests Start: 07/12/21 13:57 Freq: Status: Active Protocol: Document 07/12/21 15:30 HH (Rec: 07/12/21 15:54 [email or web address]) Special Tests Hip Special Tests LLD Comments LLE = 1/2 inch shorter hip traction Comments decreased pain noted. MARTHA Test Results +VE Scour Test Test Results +VE Straight Leg Raise Test Results +VE PT-OP-M Strength Start: 07/12/21 13:57 Freq: Status: Active Protocol: Document 07/12/21 15:30 HH (Rec: 07/12/21 15:54 HH [email or web address]) Hip Strength Hip Manual Muscle Testing Right Flexion (L2) 5 Normal Extension (S1) 5 Normal Abduction 5 Normal Adduction 5 Normal Left Flexion (L2) 2+ Poor+ Extension (S1) 3- Fair- Abduction 3- Fair- Adduction 3- Fair- Knee Strength Knee Manual Muscle Testing Right Flexion (S2) 5 Normal Extension (L3) 5 Normal Left Flexion (S2) 4- Good- Extension (L3) 4- Good- Ankle/Foot Strength Ankle and Foot Manual Muscle Testing Right Dorsiflexion (L4) 5 Normal Plantarflexion (S1) 5 Normal Left Dorsiflexion (L4) 4 Good Plantarflexion (S1) 4 Good PT-OP-Q Treatments Start: 07/12/21 13:57 Freq: Status: Active Protocol: Document 08/19/21 11:17 HH (Rec: 08/19/21 12:09 [id number]) Cardio Equipment Elliptical Duration (Minutes) 5 Resistance 3 Other slight discomfort at posterior hip only Bicycle (Upright) Duration (Minutes) 7 Resistance 5 Seat Position 7 Manual Therapy Treatment Joint Mobilizations L hip Direction inferior then lateral Grade IV Body Position Supine Comments reports good relief Self-Care/Home Management Treatment Education Patient Education Body Mechanics,Home Exercise Program,Joint Protection, Posture,Safety Other Education provided pt with anterior THIAGO protocol which addresses post op precautions, DME need, ADLs modification and prognosis and POC. I also recommended him to do walking in the pool and eliptical walking at the gym 3 times/wk for low impact ex to promote physical activity. PT-OP-T Assessment and Plan Start: 07/12/21 13:57 Freq: Status: Active Protocol: Document 08/19/21 11:17 (Rec: 08/19/21 12:09 [id number]) Physical Therapy Assessment Goals pain Impairment unable to lift his L leg up Short Term Goal (STG) pt will show improved 1/2 MMT for L hip strength so he can lift his leg up for stair climbing with step over pattern STG Duration 4 weeks [employer] Goal (LTG) pt will show improved 1 MMT for L hip strength so he can lift his leg over to get in/ over of his car LTG Duration 8 weeks gait Impairment pt uses SPC to amb Short Term Goal (STG) pt will be able to walk in the house without use of SPC STG Duration 4 weeks [employer] Goal (LTG) pt will be able to walk in the house and community without use of SPC LTG Duration 8 weeks LEFS Impairment pt scores 26 on LEFS Short Term Goal (STG) pt will be able to score 40 on LEFS to show improved mobility and strength STG Duration 4 weeks [facility] Goal (LTG) pt will be able to score 50 on LEFS to show improved mobility and strength LTG Duration 8 weeks Assessment Summary Assessment Pt reports his pain and tightness has not lasted much since his cortisone shot. He anticipates his upcoming THIAGO and agrees to continue his HEP with pool walking and eliptical walking to promote physical activity and strength prior to surgrey. provided pt with anterior THIAGO protocol which addresses post op precautions, DME need, ADLs modification and prognosis and POC. He agrees to be DC from PT at this point. Physical Therapy Plan Frequency and Duration Frequency of Treatment 2x/Week Duration of Treatment 8 weeks Plan of Care Start Date 07/12/21 Plan of Care End Date 09/10/21 Therapeutic Interventions Therapeutic Interventions Aquatic Therapy,Balance Training,Gait Training,Home Exercise Program,Joint Mobilizations,Manual Therapy, Neuromuscular Re-education, Patient/Caregiver Education, Self-Care/Home Management,Soft Tissue Mobilization,Taping, Therapeutic Activities, Therapeutic Exercises Modalities Cold Pack/Ice Massage,Electric Stimulation,Hot Packs, Infrared Therapy,Iontophoresis ,Paraffin Bath,Traction- Mechanical,Ultrasound Next Visit Focus/Plan Next Note Type Treatment Note Next Visit Plan review hip stretches isometric hip add/abd LAQ, HS curl bridging biking
--- NOTE | 2021-08-19 12:13 | PT.OPDS ---
Current Diagnoses Pain in left hip (08/19/21) Low back pain (08/19/21) Visit Care Team Role Provider Type Boubacar Coffman MD Attending Provider Physician Family Provider Primary Care Provider Referring Provider Specialty: Family Practice Address: [address] [place] [address], [facility] Email: [email or web address] Visit Number Visit Number 06/03 Discharge Summary PT-OP-B Current Condition Start: 07/12/21 13:57 Freq: Status: Active Protocol: Document 07/12/21 15:30 HH (Rec: 07/12/21 15:54 HH [email or web address]) Current Condition History of Current Condition Onset Date many years ago Current Complaints L hip pain, difficulty in walking History of Current Condition Yung is a 55 yo male here for his chronic L hip pain. 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 Pt stated his pain started many years ago but significantly getting worse since last year. He has severe pressure and pinching pain 7- 8/10 anterior and lateral side of the hip. He cannot lift his leg to get in/out of the car, difficulty with sit to stand and pain with WB activities. He is currently using a SPC to walk and taking Meloxican for night pain. Prior Treatments and Tests x-ray @ l hip IMPRESSION: Severe asymmetric left hip joint degeneration. x-ray @L/S IMPRESSION: Multilevel spondylosis, with severe disc degeneration at the L5-S1 level. Future Testing and Treatments Planned pt will consult orthopedic surgeon in 07/31 PT-OP-C Subjective Start: 07/12/21 13:57 Freq: Status: Active Protocol: Document 08/19/21 11:17 HH (Rec: 08/19/21 12:09 [id number]) OP-PT Subjective Patient Comments Patient Comments I was feeling pretty good last session but then this weekend was pretty bad and stiff. Im not sure if the injection shot is lasting as long Patient Reported Progress Same PT-OP-D Balance Start: 07/12/21 13:57 Freq: Status: Active Protocol: Document 07/12/21 15:30 HH (Rec: 07/12/21 15:54 HH [email or web address]) Balance Tests Single Limb Standing Single Limb- Right WFL Single Limb- Left WFL PT-OP-E Functional Tests Start: 07/12/21 13:57 Freq: Status: Active Protocol: Document 07/12/21 15:30 HH (Rec: 07/12/21 15:54 [email or web address]) Functional Tests Other sit to stand Name of Test with SPC on R Comment UE push off from chair armrest and SPC to stand up PT-OP-F Manual Assessment Start: 07/12/21 13:57 Freq: Status: Active Protocol: Document 07/12/21 15:30 HH (Rec: 07/12/21 15:54 [email or web address]) Manual Assessments Soft Tissue Assessment Soft Tissue Mobility Assessment L glutes, quads and gastro complex muscle atrophy. Joint Mobility Assessment Joint Mobility Assessment significant muscle guarding noted with passive motion. 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) PT-OP-K Range of Motion Start: 07/12/21 13:57 Freq: Status: Active Protocol: Document 07/12/21 15:30 HH (Rec: 07/12/21 15:54 [email or web address]) Hip Goniometric Range of Motion Hip Right Passive Hip ROM WFL Yes Testing Position Supine Flexion w/Knee Flexed 110 Straight Leg Raise 75 Extension 22 Abduction 34 Internal Rotation 28 External Rotation 45 Left Passive Hip ROM WFL No Testing Position Supine Flexion w/Knee Flexed 90 Straight Leg Raise 25 Extension 6 Abduction 18 Internal Rotation 12 External Rotation 30 Comments pain with all ROM Hip ROM Limitations Hip ROM Limitations Soft Tissue Tightness,Muscle Weakness,Pain PT-OP-L Special Tests Start: 07/12/21 13:57 Freq: Status: Active Protocol: Document 07/12/21 15:30 HH (Rec: 07/12/21 15:54 [email or web address]) Special Tests Hip Special Tests LLD Comments LLE = 1/2 inch shorter hip traction Comments decreased pain noted. MARTHA Test Results +VE Scour Test Test Results +VE Straight Leg Raise Test Results +VE PT-OP-M Strength Start: 07/12/21 13:57 Freq: Status: Active Protocol: Document 07/12/21 15:30 (Rec: 07/12/21 15:54 HH [email or web address]) Hip Strength Hip Manual Muscle Testing Right Flexion (L2) 5 Normal Extension (S1) 5 Normal Abduction 5 Normal Adduction 5 Normal Left Flexion (L2) 2+ Poor+ Extension (S1) 3- Fair- Abduction 3- Fair- Adduction 3- Fair- Knee Strength Knee Manual Muscle Testing Right Flexion (S2) 5 Normal Extension (L3) 5 Normal Left Flexion (S2) 4- Good- Extension (L3) 4- Good- Ankle/Foot Strength Ankle and Foot Manual Muscle Testing Right Dorsiflexion (L4) 5 Normal Plantarflexion (S1) 5 Normal Left Dorsiflexion (L4) 4 Good Plantarflexion (S1) 4 Good PT-OP-T Assessment and Plan Start: 07/12/21 13:57 Freq: Status: Active Protocol: Document 08/19/21 11:17 (Rec: 08/19/21 12:09 [id number]) Physical Therapy Assessment Goals pain Impairment unable to lift his L leg up Short Term Goal (STG) pt will show improved 1/2 MMT for L hip strength so he can lift his leg up for stair climbing with step over pattern STG Duration 4 weeks [facility] Goal (LTG) pt will show improved 1 MMT for L hip strength so he can lift his leg over to get in/ over of his car LTG Duration 8 weeks gait Impairment pt uses SPC to amb Short Term Goal (STG) pt will be able to walk in the house without use of SPC STG Duration 4 weeks [employer] Goal (LTG) pt will be able to walk in the house and community without use of SPC LTG Duration 8 weeks LEFS Impairment pt scores 26 on LEFS Short Term Goal (STG) pt will be able to score 40 on LEFS to show improved mobility and strength STG Duration 4 weeks [employer] Goal (LTG) pt will be able to score 50 on LEFS to show improved mobility and strength LTG Duration 8 weeks Assessment Summary Assessment Pt reports his pain and tightness has not lasted much since his cortisone shot. He states PT has been helpful for pain management, increasing ROM and activity modification but it is temporary. He is anticipating for his upcoming THIAGO and agrees to continue his HEP with pool walking and eliptical walking to promote physical activity and strength prior to surgrey. provided pt with anterior THIAGO protocol which addresses post op precautions, DME need, ADLs modification and prognosis and POC. He agrees to be DC from PT at this point.
== END 2021-11-26 09:50 ==
LOC: PHYS 11:15
PROVIDERS: Family Provider Family Medicine; PCP Family Medicine; Referring Provider Family Medicine; Visit Provider Family Medicine
DX: M25.552 Pain in left hip (principal)
CPT/HCPCS: 97110; 97140; 97161; 97535

== ENCOUNTER → 2021-10-02 10:52 | Outpatient (CLI) | payer OTHER, MEDICAID, SELFPAY ==
[2021-10-02 11:50] LABS: Add Manual Diff / Slide Review NO; Basophils Absolute Auto 0 /uL (0-100); Basophils Percent Auto 0.5 % (0-2); Eosinophils Absolute Auto 0 /uL (0-450); Eosinophils Percent Auto 0.5 % (2-4); Hematocrit 41.1 % (41-53); Hemoglobin 13.7 g/dL (13.5-17.5); Lymphocytes Absolute Auto 1000 /uL (1100-4500); Lymphocytes Percent Auto 15.1 % (25-40); Mean Corpuscular HGB Conc 33.2 % (30-36); Mean Corpuscular Hemoglobin 26.9 PG (26-34); Mean Corpuscular Volume 80.8 fL (80-100); Monocytes Absolute Auto 400 /uL (0-900); Neutrophils Absolute Auto 5100 /uL (1500-7000); Neutrophils Percent Auto 77.9 % (50-75); Platelet Count 300 X10^3/uL (150-400); Red Blood Cell Count 5.09 X10^6/uL (4.5-5.9); Red Cell Distribution Width 13.3 % (11.6-14.8); White Blood Cell Count 6.5 X10^3/uL (4.5-11.0)
[2021-10-02 12:04] LABS: Hemoglobin A1C% w Est Avg Glu 4.9 % (4.0-6.0)
[2021-10-02 12:09] LABS: BUN Creatinine Ratio 15.8 (6-22); Blood Urea Nitrogen 12 mg/dL (9-20); Calcium 9.7 mg/dL (8.4-10.2); Carbon Dioxide 30 mmol/L (22-32); Chloride 103 mmol/L (98-107); Estimated Glomerular Filt Rate > 60.0 mL/min (>60); Glucose 108 mg/dL (70-100); HEMOLYSIS < 15 (0-50); Potassium 4.7 mmol/L (3.4-5.1); Sodium 142 mmol/L (137-145)
[2021-10-02 12:11] LABS: Appearance Urine UA CLEAR; Bilirubin Urine UA NEGATIVE (NEGATIVE); Color Urine UA YELLOW; Glucose Urine UA NEGATIVE (Negative); Ketones Urine UA NEGATIVE (NEGATIVE); Leukocyte Esterase Urine UA NEGATIVE (NEGATIVE); Nitrite Urine UA NEGATIVE (Negative); Occult Blood Urine UA NEGATIVE (Negative); Protein Urine UA NEGATIVE (Negative); Specific Gravity Urine UA 1.015 (1.000-1.035); Urobilinogen Urine UA 0.2 E.U./dL (0.2); pH Urine UA 5.5 (4.5-8.0)
[2021-10-02 12:33] LABS: Bacteria Urine None Seen; Culture Indicated Urine Cult Not Indicated; RBC Urine None Seen (0-5/HPF); Squamous Epithelial Cell Urine 0-1 /HPF (0-5/HPF); WBC Urine 0-1/HPF (0-5/HPF)
== END ==
PROVIDERS: Family Provider Family Medicine; PCP Family Medicine; Referring Provider Orthopaedic Surgery; Visit Provider Orthopaedic Surgery
DX: Z01.818 Encounter for other preprocedural examination (principal); R73.9 Hyperglycemia, unspecified; Z01.812 Encounter for preprocedural laboratory examination; N39.0 Urinary tract infection, site not specified
CPT/HCPCS: 36415; 80048; 81001; 83036; 85025; 93005; 93010

== ENCOUNTER → 2021-12-02 09:24 | Outpatient (CLI) | payer OTHER, MEDICAID, SELFPAY ==
[2021-12-02 11:07] LABS: COVID19 -Nasal RAPID Negative (Negative)
== END ==
PROVIDERS: Family Provider Family Medicine; PCP Family Medicine; Visit Provider Family Medicine Sleep Medicine
DX: Z20.822 Contact with and (suspected) exposure to COVID-19 (principal)
CPT/HCPCS: 87635; C9803

== ENCOUNTER 2021-12-03 06:03 | Observation (INO) | payer OTHER, MEDICAID, SELFPAY ==
[2021-11-25 09:57] VITALS: BMI 26.4
[2021-12-03] VITALS (17 sets, daily range): BP systolic 122–156; BP diastolic 62–90; PULSE 68–93; RESP 10–18; TEMP 36.2–37.4; O2SAT 93–100; BMI 26.4
--- NOTE | 2021-12-03 06:40 | DI.RAD.S_ITS ---
PROCEDURE: XR HIP W PEL IF DONE LT 2V INDICATIONS: prosthesis placement TECHNIQUE: AP pelvis and lateral view of the left hip acquired. COMPARISON: [facility], [place], XR HIP W PEL IF DONE LT 2V, 12/03/2021, 10:53. FINDINGS: Bones: Patient is status post left hip arthroplasty, with hardware components in expected positions. The hip joint appears congruent. The visualized bony structures appear intact. Soft tissues: Overlying postoperative changes are noted. No suspicious soft tissue densities. IMPRESSION: Expected postsurgical changes. Dictated by: Sherwin Corona M.D. on 12/03/2021 at 15:36 Approved by: Sherwin Corona M.D. on 12/03/2021 at 15:36
[2021-12-03] MEDS: ACETAMINOPHEN 325 MG TABLET 975 MG PO (07:04)
[2021-12-03] MEDS: CELECOXIB 200 MG CAPSULE PO (07:05)
[2021-12-03] MEDS: PREGABALIN 75 MG CAPSULE PO (07:05)
[2021-12-03] MEDS: VANCOMYCIN 1,000 MG/200 ML PIGGYBACK 200 MG IV (07:07)
--- NOTE | 2021-12-03 07:35 | P.OP.PRE_ITS ---
Pre-operative Note COVID-19 COVID-19 status: Negative Result date/Date tested (Pos, Neg/Pending): 12/02/21 Criteria for continued procedure: Expected advancement of disease process, Possibility delay results in more complex future surgery or treatment, Increased loss of function, Continuing or worsening of significant or severe pain and Non- surgical alternatives not available or appropriate per current SOC Interval Note History & Physical reviewed/Exam performed by Physician: Yes Changes to H&P: No
[2021-12-03] MEDS: LACTATED RINGERS 1,000 ML 84 ML IV ×2 (07:36→09:23)
--- NOTE | 2021-12-03 07:36 | PM.OP.1 ---
Operative Date/Time/Diagnoses Date of procedure: 12/03/21 Time of procedure: 07:55 Pre-op diagnosis: left hip OA/ AVN Post-op diagnosis: same Procedure & Clinicians Procedure: Left total hip arthroplasty anterior approach Same procedure as scheduled: Yes Indications: The patient has had progressively worsening left hip pain with radiographic changes consistent with arthritis. Non-operative management has failed and the patient has requested total hip replacement. The risks, benefits and alternatives to surgery were discussed with the patient prior to proceeding. Risks discussed included, but were not limited to, failure to relieve pain, leg length discrepancy, dislocation, stiffness, infection, nerve damage, deep venous thrombosis, pulmonary embolism, stroke, coma, heart attack, permanent paralysis and , as well as the potential need for eventual revision of the prosthetic. Surgeon: Hilary Brantley Heat Treat Inspector: Hermilo Thompson Anesthesia Type: General Operative Notes Findings: Severe left hip osteoarthritis, adequate stability Closure Type: primary Specimen(s): none sent Prosthetic devices, grafts, tissues, transplants, or devices: Brantley and Nephew anthology standard offset size 9, 58 R3 cup, +4 oxinium head Estimated Blood Loss (mL): 250 Blood products transfused: none Procedure in detail: The patient was brought to the operating room. Patient was carefully positioned in the supine position. Time-out was performed and antibiotics were given. Anesthesia was induced. He was positioned in the on the table in order to allow hyperextension of the hip. The left lower extremity was prepped and draped in a standard sterile fashion. An anterior left hip incision was made 1 fingerbreadth lateral to the anterior superior iliac spine and extended distally towards the greater trochanter. Dissection was carried out through skin and subcutaneous tissues. Superficial hemostasis was achieved. The fascia over the tensor fascia josselin was defined and incised with a knife. Two Allis clamps were used to grasp the fascia. Tensor fascia josselin was retracted laterally. A gelpi retractor was placed. Dissection was carried out down along the neck. The circumflex vessels were carefully identified and cauterized with the Aqua Mantis. There was good visualization of the femoral neck. A Cobra was placed superior to the neck and the gluteus fibers were carefully stripped from that superior aspect of the capsule. A 2nd retractor was placed along the inferior aspect of the neck. The rectus insertion along the capsule was partially released. A 3rd retractor that was then gently placed over the rim of the acetabulum under the rectus. Capsule was carefully incised and released from the intertrochanteric line circumferentially superior to the mid sagittal line and inferiorly to the mid sagittal line until the lesser trochanter was palpable. A tag stitch was placed both in the superior and inferior limb of the capsular insertion. Along the acetabulum capsule was also released up to the mid sagittal 12:00 position. A portion of the labrum was resected. A saw was used to perform an osteotomy at the level of the intertrochanteric line and the junction of the superior femoral neck leaving approximately 1 finger breath of residual inferior neck above the lesser trochanter. A 2nd cut was made along the femoral neck at the base of the head and a napkin ring of neck was removed. Corkscrew was placed in the femoral head and the head was removed without difficulty. Retractors were then repositioned around the acetabulum. Residual labrum was resected and additional osteophytes were removed. A reamer that was 4 mm below the templated size was placed by hand in the acetabulum and it was reamed to centralize the acetabulum. It was then reamed up to 2 under the templated size and fluoroscopy was brought in to confirm the position of the reaming and depth of reaming. I reamed 1 under the anticipated size. A trial cup was placed and noted that it was appropriately sized and fluoroscopy confirmed position and depth. The component was open and inserted without difficulty fluoroscopic imaging was used to confirm that the cup had been adequately seated and was well positioned. It was further stabilized with a screw. Neutral poly liner was placed. The cup was tested and noted to be stable. Attention was then directed to the femur. The femur was gently hyperextended additional capsular release was performed as needed in order to allow adequate visualization of the proximal femur with elevation of the femur. Patient was placed in a hyperextended slightly adducted position with maximum external rotation. Box osteotome was used to check for any residual neck as well as sclerotic bone along the trochanter. [place] pepper was placed in the femur. Additional broaching was performed. Canal finder was used to determine the alignment of the canal and position. Size 1 broach was placed. The canal was then appropriately broached up to the templated size as long as there was adequate stability of the broach and serial advancement of the broach without excessive impingement. Specific attention was directed at avoiding varus attempting to direct the distal aspect of the broach more anteriorly and avoiding excessive anteversion. Trial reduction showed acceptable range of motion, good stability, no posterior impingement, anabaptism of leg length and appropriate lateral shuck. I also hyperflexed the hip and checked that there was no impingement anteriorly and there was good stability with flexion, adduction and internal rotation. Marcaine and Exparel were injected. The stem was placed without difficulty. Repeat trial reduction and x-ray showed acceptable overall position, length, and no evidence of the femoral fracture. Final head was placed. Wound was meticulously irrigated with normal saline. The hip was reduced and additional Exparel and Marcaine were injected. The capsule was closed with interrupted nonabsorbable sutures. The fascia of the tensor was closed with interrupted and running Vicryl. No drain was placed. Any tensor fascia josselin muscle that appeared to be contused or injured which was a minimal amount was carefully resected. Capsule around the tensor was injected with Exparel and Marcaine. The skin was closed with barbed stitches for the subcutaneous tissue and skin. We also used surgical glue. The wound was dressed sterilely. Brief Betadine soak was also used and was meticulously irrigated with normal saline. Patient was transferred to recovery room in satisfactory condition. Complications: none Post-operative Condition: stable Disposition: same day surgery Plan for aftercare: The patient will be maintained on a standard total hip replacement protocol with weight bearing as tolerated and anterior hip precautions. The patient will receive Aspirin and sequential compression devices for DVT prophylaxis. The patient will be discharged home when safe for the home environment.
[2021-12-03] MEDS: CEFAZOLIN 2 GM/20 ML SYRINGE IV ×2 (08:12→16:44)
[2021-12-03] MEDS: TRANEXAMIC ACID 1,000 MG VIAL 1000 MG INJ ×2 (08:20→10:41)
--- NOTE | 2021-12-03 08:31 | SUR.OPER ---
Supine on padded [place] table with bilateral legs secured in padded positioning boots and suspended in positioning spars, operative leg in traction per surgeon. Head on one pillow. Arm on non-operative side secured on padded armboard <90 degrees abduction. Arm on operative side padded and resting across chest then secured with tape over sheet. Padded perineal post in place per surgeon.
[2021-12-03] MEDS: BUPIVACAINE LIPOSOME 266 MG/20 ML VIAL INJ (08:45)
[2021-12-03] MEDS: BUPIVACAINE 0.25% (PF) 60 ML, EPINEPHrine 0.3 MG INJ (08:46)
--- NOTE | 2021-12-03 10:00 | DI.RAD.S_ITS ---
PROCEDURE: XR HIP W PEL IF DONE LT 2V INDICATIONS: LEFT TOTAL HIP TECHNIQUE: 3 fluoroscopic images of the left hip. COMPARISON: [facility], [place], XR HIP W PEL IF DONE LT 2V, 06/19/2021, 14:02. FINDINGS: Bones: Patient is status post left hip arthroplasty, with hardware components in expected positions. The hip joint appears congruent. The visualized bony structures appear intact. IMPRESSION: Left hip arthroplasty as detailed above. Dictated by: Sherwin Corona M.D. on 12/03/2021 at 15:35 Approved by: Sherwin Corona M.D. on 12/03/2021 at 15:35
[2021-12-03] MEDS: ONDANSETRON 4 MG/2 ML INJ IV (11:42)
[2021-12-03] MEDS: OXYCODONE/ACETAMINOPHEN 5/325 TABLET 1 TAB PO (11:47)
[2021-12-03] MEDS: LACTATED RINGERS 1,000 ML 125 ML IV (12:53)
--- NOTE | 2021-12-03 13:29 | SUR.PHASEI ---
Kika to Rm 210 in bed with Zaida RN wth 1 belonging bag and cane. Sbar at bedside with Jayson RN. Pt. tolerating beverages. Bed in locked and low posn. call light in reach
--- NOTE | 2021-12-03 13:31 | SUR.PHASEI ---
All patient care by Nan POSADA supervised and done with Zaida Marshall RN.
[2021-12-03] MEDS: IBUPROFEN 400 MG TABLET PO ×2 (14:46→20:59)
[2021-12-03] MEDS: ACETAMINOPHEN 325 MG TABLET 650 MG PO ×2 (14:47→21:00)
--- NOTE | 2021-12-03 15:10 | P.DS_ITS ---
History of Present Illness History of Present Illness Date Patient Seen: 12/03/21 Time Patient Seen: 15:11 Chief complaint: Hip pain Narrative: Pain is controlled. Denies fever or chills. No nausea vomiting. Discharge Providers Provider Discharge Date: 12/03/21 Primary care physician: Boubacar Coffman MD Consults: 12/03/21 06:40 Consult to Anesthesiology Routine Comment: Consulting Provider: Anesthesiologist Reason for consultation: Regional block for post operative pain control 12/03/21 12:31 Consult to Discharge Planning Routine Comment: Consult to Physical Therapy Evaluate & Treat Comment: home today Physician Instructions: post op THIAGO protocol Consult to Respiratory Therapy Evaluate & Treat Comment: Physician Instructions: Evaluate and treat Discharge provider: Hermilo Thompson PA-C Summary Hospital Course Discharge Diagnosis: Left hip OA/AVN Hospital Course: Procedure: Left total hip arthroplasty anterior approach Same procedure as scheduled: Yes Indications: The patient has had progressively worsening left hip pain with radiographic linares ges consistent with arthritis. Non-operative management has failed and the patient has requested total hip replacement. The risks, benefits and alternatives to surgery were discussed with the patient prior to proceeding. Risks discussed included, but were not limited to, failure to relieve pain, leg length discrepancy, dislocation, stiffness, infection, nerve damage, deep venous thrombosis, pulmonary embolism, stroke, coma, heart attack, permanent paralysis and , as well as the potential need for eventual revision of the prosthetic. Surgeon: Hilary Brantley Fourth Officer: Hermilo Thompson Anesthesia Type: General Operative Notes Findings: Severe left hip osteoarthritis, adequate stability Closure Type: primary Specimen(s): none sent Prosthetic devices, grafts, tissues, transplants, or devices: Brantley and Nephew anthology Estimated Blood Loss (mL): 250 Blood products transfused: none Patient admitted to the hospital for the above-mentioned procedure. Patient consented to the same. Patient underwent left total hip arthroplasty, anterior approach this morning. Patient back in his room recovering well as in stable condition. Patient will mobilize with physical therapy. Patient will be discharged home today in stable condition. Status at Discharge Cognitive/behavioral status at discharge: oriented Functional status at discharge: uses cane/walker Overall status at discharge: patient is progressing back to baseline Exam Vital Signs (past 8 hours): - 12/03/21 07:38 12/03/21 11:11 12/03/21 11:17 Temperature 97.1 F L 99.0 F Pulse Rate 76 93 H 85 Respiratory Rate 16 18 11 L Blood Pressure 156/78 H 133/90 138/62 Pulse Oximetry 99 99 98 12/03/21 11:21 12/03/21 11:26 12/03/21 11:31 Temperature 97.8 F Pulse Rate 79 77 80 Respiratory Rate 15 16 14 Blood Pressure 126/66 132/76 124/76 Pulse Oximetry 100 100 99 12/03/21 11:36 12/03/21 11:41 12/03/21 11:51 Temperature Pulse Rate 84 74 72 Respiratory Rate 12 17 10 L Blood Pressure 122/79 130/75 129/75 Pulse Oximetry 99 99 100 12/03/21 12:06 12/03/21 12:20 12/03/21 12:31 Temperature 98.4 F 98.4 F Pulse Rate 70 68 Respiratory Rate 14 Blood Pressure 130/72 127/72 Pulse Oximetry 99 98 99 12/03/21 13:48 12/03/21 14:44 Temperature 98.3 F 98.5 F Pulse Rate 76 74 Respiratory Rate 16 16 Blood Pressure 127/84 143/79 H Pulse Oximetry 99 99 Oxygen Delivery Method Room Air Narrative Exam Narrative: 56-year-old male resting comfortably in bed in no apparent distress. Dressing is Clean, dry, intact.. Motor functions intact bilateral lower extremities. Sensation grossly intact to light touch bilateral lower extremities. Const General: cooperative Orientation: alert [facility] Medical History Allergies (~1987) Anxiety (2018) Carpal tunnel syndrome (~1992) Chicken pox Hepatitis HSV (herpes simplex virus) infection (~1995) HTN (hypertension) Osteoarthritis of lumbar spine Osteoarthritis of right hip Seasonal allergies Surgical History Anesthesia History of appendectomy (~1995) History of carpal tunnel release (~1991) Hx of tonsillectomy Family History Mother Brain aneurysm Grandfather No problems noted. Social History household members: significant other Smoking Status: Never smoker alcohol intake: current Discharge Assessment & Plan Assessment and Plan Assessment: Stable status post left total hip arthroplasty, anterior approach Plan of Treatment: Mobilize with physical therapy Weight-bearing as tolerated with anterior hip precautions Multimodal pain management Discharge home today in stable condition Discharge Plan Discharge Plan Patient Disposition: Home Discharge orders & Medications Discharge Orders: Discharge (Order); Ordered 12/03/21 Ordered By: Hermilo Thompson Prescriptions: New oxycodone 5 mg Tablet 10 mg PO Q3HR PRN (Reason: Pain, Severe (7-10)) Qty: 40 0RF aspirin 81 mg Tablet,Delayed Release (Dr/Ec) 81 mg PO BID Qty: 60 0RF polyethylene glycol 3350 17 gram Powder In Packet 17 gm PO DAILY PRN (Reason: Constipation) Qty: 20 0RF acetaminophen 325 mg Tablet 650 mg PO TID Qty: 60 0RF ondansetron 4 mg Tablet,Disintegrating 4 mg PO Q4HR PRN (Reason: Nausea) Qty: 20 0RF Continued meloxicam 15 mg tablet 15 mg PO DAILY 0RF Discontinued acetaminophen 500 mg Tablet 1,000 mg PO Q6H PRN (Reason: Pain (Scale Score 1-3)) 0RF Follow up/Referrals: Boubacar Coffman MD [Primary Care Provider] - Hilary Brantley MD [Physician] - (Two weeks) Diet/Activity/Treatments Diet: Diet as Tolerated Activity: Weight-bearing as tolerated, anterior hip precautions Cold/Heat Therapy: Ice to hip as needed Skin/Wound/Dressing Care Report to your healthcare provider any signs of infection, such as:: chills, fever, increased pain, unusual drainage and unusual redness Dressing: Keep dressing clean and dry, may shower with dressing in place Visit Report/Discharge Packet Instructions: DI for Hip Replacement Stand Alone Forms: Surgery Discharge Discharge Data Primary Care Provider: Boubacar Coffman Attending Provider: Hilary Brantley
--- NOTE | 2021-12-03 16:10 | PT.IIE ---
Current Diagnoses Unilateral primary osteoarthritis, left hip (12/03/21) Pain in left hip (12/03/21) Surgery Performed Operation Date: 12/03/21 07:45 Actual Procedures p Total Hip Arthroplasty/Anterior Approach(Left) - Hilary Brantley MD Surgical History (Last Reviewed 12/03/21 @ 15:13 by Hermilo Thompson PA-C) Anesthesia Medical History (Last Reviewed 12/03/21 @ 15:13 by Hermilo Thompson PA-C) Allergies (~1987) Anxiety (2017) Carpal tunnel syndrome (~1992) Chicken pox Hepatitis HSV (herpes simplex virus) infection (~1995) HTN (hypertension) Osteoarthritis of lumbar spine Osteoarthritis of right hip Seasonal allergies Physical Therapy Inpatient Evaluation/Re-Eval M1 PT/OT-IP Prior Functional Status Start: 12/03/21 17:36 Freq: NEEDED Status: Active Protocol: Document 12/03/21 16:10 AB (Rec: 12/03/21 17:49 AB [id number]) Medical Review Prior Functional Status Medical History Reviewed Yes Communication able to make needs known Mobility and Gait pt stated that he is modified independent with all mobilities and ambulation using SPC Social History Household Members significant other Living Arrangements House Number of Floors (Floors) Two Floors Number of Stairs To Enter/Railing? 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 PT-IP Current Condition Start: 12/03/21 17:36 Freq: NEEDED Status: Active Protocol: Document 12/03/21 16:10 AB (Rec: 12/03/21 17:49 AB [id number]) Physical Therapy Current Condition Current Condition Evaluation Date 12/03/21 Treatment Diagnosis s/p L THIAGO anterior approach; difficulty in walking Onset Date 12/03/21 M3 PT-IP Subjective Start: 12/03/21 17:36 Freq: NEEDED Status: Active Protocol: Document 12/03/21 16:10 AB (Rec: 12/03/21 17:49 AB [id number]) Subjective Physical Therapy Visit Type Type Initial Evaluation Visit Start Time 16:10 Visit Stop Time 17:00 Total Visit Minutes 50 Number of WAX 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 Visits 0 Physical Therapy Visit Comments Patient Comments pt is agreeable to do PT Therapy Pain Assessment Pain When Pain Assessed At Rest Pain Present Pain Present Pain Reported Location left hip Intensity 3 Scale Used Numeric (0 - 10) M4 PT-IP Mobility and Gait Start: 12/03/21 17:36 Freq: NEEDED Status: Active Protocol: Document 12/03/21 16:10 AB (Rec: 12/03/21 17:49 AB [id number]) PT-Bed Mobility Assessment Supine to Sit Supine to Sit Standby Assistance Sit to Supine Sit to Supine Maximum Assistance,1 Person Assistance,2 Person Assistance Scooting Scooting Up and Down in Bed Maximum Assistance PT-Transfer Assessment Sit to and From Stand Sit to and from Stand Contact Guard Assistance,1 Person Assistance,Use of Upper Extremities Equipment Transfer Assistive Device Gait Belt,Front Wheeled Walker Orthotic/Prosthetic Devices or Brace: No Comments Mobility Comments pt supine with spouse in room. pt is hoping to go home today. educated pt regarding anterior hip precautions. BP in supine 138/76. pt feeling nauseus with (+) emesis. Nurse aware and in room. Pt stated that he felt better after throwing up and wanted to move. completed supine to sit SBA. pt was able to sit on EOB SBA. BP checked: 152/ 80. completed sit to stand CGA and ambulated ~ 5 ft using fWW CGA and stated that he is feeling lightheaded. instructed to back up onto the bed and completed CGA to min A and able to side steps towards HOB. attempted to get BP reading in sitting but pt stated that he needs to lay back down. max A x 1-2 for sit to supine. BP: 90/50. positioned pt in bed max A x 2 . BP checked again after a few minutes: 95/56. call light and table placed within reach . Nurse in room with pt. Gait Assessment Gait Gait Assistance Required: Contact Guard Assist,Minimum Assistance Distance (Feet) 10 Able to Maintain Weight Bearing Status No During Gait Assistive Devices Assistive Device Gait Belt,Front Wheeled Walker Orthotic/Prosthetic Devices or Brace: No Factors Limiting Gait Function Factors Limiting Gait Function Decreased Activity Tolerance, Decreased Strength,Limited Range of Motion,Pain,Poor Balance,Poor Safety Awareness PT-Balance Assessment Sitting Balance and Reactions Static Sitting Balance Ability Good Dynamic Sitting Balance Ability Good Standing Balance and Reactions Static Standing Balance Ability Fair Dynamic Standing Balance Ability Fair Device Used FWW M5 PT-IP Objective Assessments Start: 12/03/21 17:36 Freq: NEEDED Status: Active Protocol: Document 12/03/21 16:10 AB (Rec: 12/03/21 17:49 AB [email or web address]) Orientation Orientation/Cognition Level of Alertness Alert Orientation Name,Place,Situation Language Function Ability No Deficits Noted Safety Awareness Decreased Safety Awareness Memory Description No Deficits Noted Gross Range of Motion Lower Extremity ROM Assessment Within Functional Limits Strength Lower Extremity Strength Assessment Left Impaired Hip 3-/5 Knee 4-/5 Muscle Tone Muscle Tone WNL Yes M6 PT-IP Treatment Start: 12/03/21 17:36 Freq: NEEDED Status: Active Protocol: Document 12/03/21 16:10 AB (Rec: 12/03/21 17:49 AB [email or web address]) Physical Therapy Treatment Education Education Provided Precautions,Weight Bearing Status,Post-Op Packet,Safety M7 PT-IP Assessment and Plan Start: 12/03/21 17:36 Freq: NEEDED Status: Active Protocol: Document 12/03/21 16:10 AB (Rec: 12/03/21 17:49 AB [email or web address]) PT Summary Assessment and Plan Potential Rehabilitation Potential Good Status of Condition at Evaluation Evolving Summary Impairments Pain,ROM,Strength,Balance, Coordination,Sensation,Tone, Cognition,Bed Mobility, Transfers,Gait,Activity Tolerance Assessment Summary Pt s/p L THIAGO anterior approach and just had surgery this morning. pt initially requiring CGA with mobility but required max A towards end of tx session with decrease in BP and needing to be assisted to supine. pt unable to tolerate much activity and not safe to d/c today. pt was hoping to go home today but agreed that he is not ready. will f/u tomorrow. Goals Bed Mobility Goal Independent Transfer Goal Independent,Front Wheeled Walker Gait Goal Independent,Front Wheel Walker Gait Distance 200 Other Goals up/down 2 platform steps using FWW SBA Days to Meet Goals 5 Frequency of Treatment Frequency Of Treatment Twice a Day Treatment Plan Physical Therapy Treatment Plan Bed Mobility Training,Transfer Training,Gait Training, Therapeutic Exercise,Balance Retraining,Post Op Education, Discharge Planning,Hot or Cold Pack,Neuromuscular Re-ed, Coordination Retraining,Manual Therapy Precautions Anterior Hip Precautions No Hip Extension,No Hip External Rotation Weight Bearing Status Weight Bearing Status Weight Bear as Tolerated Allowed Weight Bearing Amount (enter % LLE WBAT or #) (%) Recommendations To Nursing Amount of Assist Needed 1 Person Assist Discharge Recommendations PT Discharge Recommendations Home with Assistance, Outpatient PT Transportation Needs at Discharge Private Vehicle
[2021-12-03] MEDS: ONDANSETRON 4 MG ODT PO (16:44)
--- NOTE | 2021-12-03 18:47 | PC.NURSE ---
Addendum entered by Jayson May R.N. 12/03/21 19:02: Patient had episode of emesis, felt better afterwards, given zofran as ordered prn. Attempted to get up with P.T. but became lightheaded with ambulation and PT noted decrease in blood pressure. Patient felt better after laying down. No further nausea/vomiting noted. Discharge cancelled. Patient able to void using urinal while standing at bedside with walker, denies lightheadedness. Patient agrees to call for assistance with the urinal tonight. Urinal and call light within reach. Original Note: 1230pm Patient admitted post op from PACU to room 210, oriented to room and call light and placed within reach. Aquacel to left anterior hip incision is CDI without drainage, mild bruising to lateral edge of dressing noted. +CMS, although still having decreased sensations relating to spinal. COntinue to monitor. Anticipate PT eval, patient hoping to discharge to home tonight if able to ambulate and void.
[2021-12-03] MEDS: DOCUSATE 100 MG CAPSULE PO (20:59)
[2021-12-03] MEDS: ASPIRIN EC 81 MG TABLET PO (20:59)
[2021-12-04] MEDS: CEFAZOLIN 2 GM/20 ML SYRINGE IV (00:40)
[2021-12-04] MEDS: IBUPROFEN 400 MG TABLET PO ×3 (01:40→08:34)
[2021-12-04 01:45] VITALS: BP 133/68; PULSE 73; RESP 17; TEMP 36.5; O2SAT 99
[2021-12-04] MEDS: LACTATED RINGERS 1,000 ML 125 ML IV (04:30)
[2021-12-04 05:00] VITALS: BP 129/72; PULSE 68; RESP 18; TEMP 36.8; O2SAT 97
[2021-12-04 05:44] LABS: Hematocrit 33.3 % (41-53); Hemoglobin 10.8 g/dL (13.5-17.5)
[2021-12-04] MEDS: ACETAMINOPHEN 325 MG TABLET 650 MG PO (08:33)
[2021-12-04] MEDS: MELOXICAM 7.5 MG TABLET 15 MG PO (08:34)
[2021-12-04] MEDS: DOCUSATE 100 MG CAPSULE PO (08:34)
[2021-12-04] MEDS: ASPIRIN EC 81 MG TABLET PO (08:34)
--- NOTE | 2021-12-04 09:29 | PT.IPTN ---
Current Diagnoses Unilateral primary osteoarthritis, left hip (12/03/21) Pain in left hip (12/03/21) Surgery Performed Operation Date: 12/03/21 07:45 Actual Procedures p Total Hip Arthroplasty/Anterior Approach(Left) - Hilary Brantley MD Physical Therapy Treatment Note M2 PT-IP Current Condition Start: 12/03/21 17:36 Freq: NEEDED Status: Active Protocol: Document 12/03/21 16:10 AB (Rec: 12/03/21 17:49 AB [id number]) Physical Therapy Current Condition Current Condition Evaluation Date 12/03/21 Treatment Diagnosis s/p L THIAGO anterior approach; difficulty in walking Onset Date 12/03/21 M3 PT-IP Subjective Start: 12/03/21 17:36 Freq: NEEDED Status: Active Protocol: Document 12/04/21 09:16 LJ (Rec: 12/04/21 09:28 LJ [id number]) Subjective Physical Therapy Visit Type Type Treatment Note Visit Start Time 08:55 Visit Stop Time 09:15 Total Visit Minutes 20 Number of PATHOLOGY TEACHER Visits 1 Physical Therapy Visit Comments Patient Comments pt is agreeable to do PT Therapy Pain Assessment Pain When Pain Assessed At Rest Pain Present Pain Present Pain Reported M4 PT-IP Mobility and Gait Start: 12/03/21 17:36 Freq: NEEDED Status: Active Protocol: Document 12/04/21 09:16 LJ (Rec: 12/04/21 09:28 LJ [id number]) PT-Bed Mobility Assessment Supine to Sit Supine to Sit Standby Assistance Sit to Supine Sit to Supine Standby Assistance PT-Transfer Assessment Sit to and From Stand Sit to and from Stand Standby Assistance,1 Person Assistance,Use of Upper Extremities Equipment Transfer Assistive Device Gait Belt,Front Wheeled Walker Orthotic/Prosthetic Devices or Brace: No Comments Mobility Comments Pt resting in bed. States he is not feling dizzy or nauseated this am. He was able to swing B Les off bed and sit from supine (bed flat) SBA . Pt sat on side of bed for `1 min without dizziness or nause prior to standing. Pt able to stand pushing off bed. Pt then reviewed precautions and began to ambulate. He ambulated in hallway to platform step and using FWW properly, he safely went up and down the platform without issue. He ambulated back to room and sat in chair. Gait Assessment Gait Gait Assistance Required: Standby Assistance Distance (Feet) 200 Able to Maintain Weight Bearing Status No During Gait Assistive Devices Assistive Device Gait Belt,Front Wheeled Walker Orthotic/Prosthetic Devices or Brace: No Factors Limiting Gait Function Factors Limiting Gait Function Decreased Activity Tolerance, Decreased Strength,Limited Range of Motion,Pain,Poor Balance M5 PT-IP Objective Assessments Start: 12/03/21 17:36 Freq: NEEDED Status: Active Protocol: Document 12/03/21 16:10 AB (Rec: 12/03/21 17:49 AB [id number]) Orientation Orientation/Cognition Level of Alertness Alert Orientation Name,Place,Situation Language Function Ability No Deficits Noted Safety Awareness Decreased Safety Awareness Memory Description No Deficits Noted Gross Range of Motion Lower Extremity ROM Assessment Within Functional Limits Strength Lower Extremity Strength Assessment Left Impaired Hip 3-/5 Knee 4-/5 Muscle Tone Muscle Tone WNL Yes M6 PT-IP Treatment Start: 12/03/21 17:36 Freq: NEEDED Status: Active Protocol: Document 12/04/21 09:16 VIDYA (Rec: 12/04/21 09:28 [id number]) Physical Therapy Treatment Exercises Exercises Ankle Pumps,Gluteal Sets Education Education Provided Precautions,Weight Bearing Status,Post-Op Packet,Safety Other Treatments Other Treatment Performed 10 each ankle pumps and glute sets M7 PT-IP Assessment and Plan Start: 12/03/21 17:36 Freq: NEEDED Status: Active Protocol: Document 12/04/21 09:16 VIDYA (Rec: 12/04/21 09:28 [id number]) PT Summary Assessment and Plan Potential Rehabilitation Potential Good Status of Condition at Evaluation Stable Summary Impairments Pain,ROM,Strength,Balance, Coordination,Sensation,Tone, Cognition,Bed Mobility, Transfers,Gait,Activity Tolerance Assessment Summary Pt did very well with all mobility and ambulation. He is aware of and attentive to precautions. He safely ambulated in hallway and demonstrated safety when using FWW with step up and down on platform step. Upon returning to room, pt sat in chair and was given all needs. present. Pt is safe for DC today. Goals Bed Mobility Goal Independent Transfer Goal Independent,Front Wheeled Walker Gait Goal Independent,Front Wheel Walker Gait Distance 200 Other Goals up/down 2 platform steps using FWW SBA Days to Meet Goals 5 Frequency of Treatment Frequency Of Treatment Twice a Day Treatment Plan Physical Therapy Treatment Plan Bed Mobility Training,Transfer Training,Gait Training, Therapeutic Exercise,Balance Retraining,Post Op Education, Discharge Planning,Hot or Cold Pack,Neuromuscular Re-ed, Coordination Retraining,Manual Therapy Precautions Anterior Hip Precautions No Hip Extension,No Hip External Rotation Weight Bearing Status Weight Bearing Status Weight Bear as Tolerated Allowed Weight Bearing Amount (enter % LLE WBAT or #) (%) Recommendations To Nursing Amount of Assist Needed 1 Person Assist Discharge Recommendations PT Discharge Recommendations Home with Assistance, Outpatient PT Transportation Needs at Discharge Private Vehicle
--- NOTE | 2021-12-04 10:21 | PC.NURSE ---
A&Ox4. Pain 1/10 in left hip. Scheduled tylenol, ibuprofen, apsirin and meloxicam given prior to PT. PT evaluated and given okay to discharge home. IV removed, discharge instructions given. Off of unit at 10:15.
--- NOTE | 2021-12-04 11:47 | CM.DANOTE ---
DCP Brief Assessment Patient is a 56 yo male who was admitted on 12/03/21 for LTHA. Pt has [employer] [place] and [place] for [place] and his PCP is Dr. Boubacar Coffman. EMR was reviewed. Per Ortho PA, pt tolerated procedure well and pain is managed and pt stable for d/c home today. 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 Pt has Sig Other Zee who lives with pt and is available for assist and transport at d/c. PT cleared pt for home with assist and outpt PT. Per RN, d/c instructions given after PT CG training this morning and no concerns and pt transported home by Sig Other during MD rounds this morning. Plan: Patient discharged home this morning during rounds via Sig Other POV and outpt PT recommended. No further SW needs at this time. Shital Welch MSW
== END 2021-12-04 10:15 | disposition home or self-care (01) ==
LOC: OR 06:05 → AC 06:08
PROVIDERS: Admitting Provider Orthopaedic Surgery; Family Provider Family Medicine; PCP Family Medicine; Referring Provider Orthopaedic Surgery; Visit Provider Orthopaedic Surgery
PROC: (CPT 27130; principal; 2021-12-03 07:45)
DX: M16.12 Unilateral primary osteoarthritis, left hip (principal); M87.9 Osteonecrosis, unspecified
CPT/HCPCS: 27130; 36415; 73502; 76000; 85014; 85018; 97116; 97162; 97530; C1776; G0378; C9290; J0171; J0690; J1100; J2250; J2274; J2405; J2704; J3010

== ENCOUNTER → 2022-11-29 07:59 | Outpatient (CLI) | payer OTHER, MEDICAID, SELFPAY ==
[2021-12-03 12:38] VITALS: BMI 26.4
[2022-11-29 08:56] LABS: Add Manual Diff / Slide Review NO; Alanine Aminotransferase 18 IU/L (<50); Albumin 4.6 g/dL (3.5-5.0); Albumin Globulin Ratio 1.6 (1.0-2.8); Alkaline Phosphatase 78 U/L (38-126); Aspartate Aminotransferase 24 IU/L (17-59); BUN Creatinine Ratio 17.9 (6-22); Basophils Absolute Auto 0 /uL (0-100); Basophils Percent Auto 0.8 % (0-2); Bilirubin Total 0.5 mg/dL (0.2-1.3); Blood Urea Nitrogen 15 mg/dL (9-20); Calcium 9.4 mg/dL (8.4-10.2); Carbon Dioxide 26 mmol/L (22-32); Chloride 104 mmol/L (98-107); Cholesterol 188 mg/dL (140-199); Eosinophils Absolute Auto 100 /uL (0-450); Eosinophils Percent Auto 2.3 % (2-4); Estimated Glomerular Filt Rate > 60 mL/min (>60); Globulin 2.9 g/dL (1.7-4.1); Glucose 104 mg/dL (70-100); HDL Cholesterol 48 mg/dL (40-60); HEMOLYSIS < 15 (0-50); Hematocrit 42.6 % (41-53); Hemoglobin 14.2 g/dL (13.5-17.5); LDL Cholesterol Calculated 123 mg/dL (<100); Lymphocytes Absolute Auto 1600 /uL (1100-4500); Lymphocytes Percent Auto 34.1 % (25-40); Mean Corpuscular HGB Conc 33.4 % (30-36); Mean Corpuscular Hemoglobin 27.3 PG (26-34); Mean Corpuscular Volume 81.7 fL (80-100); Monocytes Absolute Auto 400 /uL (0-900); Monocytes Percent Auto 7.9 % (3-14); Neutrophils Absolute Auto 2600 /uL (1500-7000); Neutrophils Percent Auto 54.9 % (50-75); Platelet Count 242 X10^3/uL (150-400); Potassium 4.6 mmol/L (3.4-5.1); Red Blood Cell Count 5.21 X10^6/uL (4.5-5.9); Red Cell Distribution Width 13.9 % (11.6-14.8); Sodium 141 mmol/L (137-145); Total Protein 7.5 g/dL (6.3-8.2); Triglycerides 87 mg/dL (35-150); White Blood Cell Count 4.8 X10^3/uL (4.5-11.0)
[2022-11-29 09:23] LABS: TSH w/ Reflex to FT4 2.28 uIU/mL (0.47-4.68)
[2022-11-29 09:24] LABS: Prostate Specific Antigen Scrn 1.56 ng/mL (0.1-4.0)
[2022-11-29 09:57] LABS: Creatinine Urine Random 302.3 mg/dL
[2022-11-29 10:01] LABS: Microalbumi Creatinin Ratio Ur 6.2 ug/mg CR (<30); Microalbumin Urine Random 1.9 mg/dL (0-1.6)
[2022-11-29 10:37] LABS: Hep C Virus Ab w/Reflex Quant NEGATIVE s/c (NEGATIVE)
== END ==
PROVIDERS: Family Provider Family Medicine; PCP Family Medicine; Referring Provider Family Medicine; Visit Provider Family Medicine
DX: F41.9 Anxiety disorder, unspecified (principal); I10 Essential (primary) hypertension; Z12.5 Encounter for screening for malignant neoplasm of prostate
CPT/HCPCS: 36415; 80053; 80061; 82043; 82570; 84443; 85025; 86803; G0103

== ENCOUNTER 2023-03-03 12:25 | Day surgery (SDC) | payer OTHER, MEDICAID, SELFPAY ==
[2021-12-03 12:38] VITALS: BMI 26.4
[2023-03-03] MEDS: LACTATED RINGERS 1,000 ML 42 ML IV (13:59)
[2023-03-03 14:08] VITALS: BP 136/76; PULSE 63; RESP 16; TEMP 36.7; O2SAT 100; BMI 25.7
--- NOTE | 2023-03-03 14:56 | P.HP_ITS ---
History of Present Illness History of Present Illness Date Patient Seen: 03/03/23 Time Patient Seen: 14:56 [place] [facility] [place]ative: The patient presents for colorectal screening. They have never had any previous examination for such. No personal or family history of colon cancer. On further history denies any recent gastrointestinal symptoms. No nausea, vomiting, abdominal pain, loss of appetite, unexplained weight loss, change in bowel habits, or blood per rectum. [facility] Medical History (Updated 11/27/22 @ 13:57 by Boubacar Coffman MD) Allergies (~1987) Anxiety (2017) Carpal tunnel syndrome (~1992) Chicken pox Hepatitis HSV (herpes simplex virus) infection (~1995) HTN (hypertension) Osteoarthritis of lumbar spine Osteoarthritis of right hip Seasonal allergies Surgical History (Updated 11/27/22 @ 13:57 by Boubacar Coffman MD) Anesthesia History of appendectomy (~1995) History of carpal tunnel release (~1991) History of right hip replacement Hx of tonsillectomy Family History Mother Brain aneurysm Grandfather No problems noted. Social History household members: significant other Smoking Status: Never smoker alcohol intake: current Meds Home Medications and Allergies Home Medications Medication Instructions Recorded Confirmed Type acetaminophen 325 mg tablet 650 mg PO TID #60 tabs 12/03/21 03/03/23 Rx naproxen sodium 220 mg tablet 220 mg PO PRN PRN Inflammation 03/03/23 03/03/23 History Allergies Allergy/AdvReac Type Severity Reaction Status Date / Time bee venom protein (honey bee) Allergy Severe Difficulty Verified 03/03/23 14:03 Breathing Exam Vital Signs (past 8 hours): - 03/03/23 14:08 Temperature 98.1 F Pulse Rate 63 Respiratory Rate 16 Blood Pressure 136/76 Pulse Oximetry 100 Oxygen Delivery Method Room Air Oxygen Delivery Method Room Air Narrative Exam Narrative: General adult man alert oriented no acute distress Assessment & Plan Assessment & Plan narrative: The patient requires colorectal screening and colonoscopy is recommended. Technical details were discussed. Risks, benefits, alternatives explained. Risks including but not limited to myocardial infarction, aspiration, bleeding, pain, missed lesion, incomplete examination, need for further radiographic studies, colonic perforation, and need for major abdominal surgery were discussed. All questions were answered to their satisfaction, and they are in agreement with this plan.
--- NOTE | 2023-03-03 15:00 | P.OP.COLON_ITS ---
Operative Date/Time/Diagnoses Date of procedure: 03/03/23 Time of procedure: 15:01 Pre-op diagnosis: Colorectal screening Procedure & Clinicians Study performed: Colonoscopy Same procedure as scheduled: Yes Indications: Colorectal screening Surgeon: Guerrero Schmitz Procedure Notes Procedure in detail: The history and physical was performed/updated and the patient is ASA class is 1. The procedure was discussed in detail with the patient. Potential risks complications including infection, bleeding, missed diagnosis, perforation, need for surgery, and were explained. Their questions were answered and informed consent was obtained. Patient was brought to the procedure room and placed standard monitoring equipment. The patient's vital signs were monitored continuously throughout the entire procedure. Prior to starting time-out was performed. The patient was placed in the left lateral recumbent position. Procedural sedation was administered by anesthesia. Examination began with a thorough inspection of the perianal area there was no evidence of fissures, fistulae, external hemorrhoids or cutaneous malignancy. The colonoscopy scope was then placed into the anal canal and was advanced to the cecum, which was identified by the ileocecal valv e, the appendiceal orifice and the confluence of the taenia. The scope was then slowly withdrawn examining colon thoroughly in all directions, irrigating it of any residual stool. Normal colonoscopy. No masses polyps or inflammation. The patient tolerated the procedure well. They will be discharged once criteria are met. The prep was of good/excellent quality. The withdrawl time was 6 minutes. Specimen(s): none sent Impression: Normal colonoscopy Post-procedure Recommendations: Colonoscopy in 10 years and High fiber diet Disposition: same day surgery
[2023-03-03 15:24] VITALS: BP 102/60; PULSE 60; RESP 19; TEMP 36.9; O2SAT 97
[2023-03-03 15:31] VITALS: BP 126/71; PULSE 65; RESP 22; O2SAT 99
[2023-03-03 15:37] VITALS: BP 116/74; PULSE 65; RESP 16; O2SAT 98
[2023-03-03 15:38] VITALS: BP 116/71
== END 2023-03-03 15:39 | disposition home or self-care (01) ==
PROVIDERS: Family Provider Family Medicine; PCP Family Medicine; Referring Provider Surgery; Visit Provider Surgery
PROC: 0DJD8ZZ Inspection of Lower Intestinal Tract, Via Natural or Artificial Opening Endoscopic (ICD-10-PCS; CPT 45378; principal; 2023-03-03 13:45)
DX: Z12.11 Encounter for screening for malignant neoplasm of colon (principal)
CPT/HCPCS: 45378; J2704

== ENCOUNTER 2023-10-19 10:47 | Emergency (ER) | payer OTHER, SELFPAY ==
[2021-12-03 12:38] VITALS: BMI 26.4
[2023-10-19] VITALS (7 sets, daily range): BP systolic 129–210; BP diastolic 75–98; PULSE 58–75; RESP 14–27; TEMP 36.2; O2SAT 98–100; BMI 26.7
[2023-10-19 11:14] LABS: Add Manual Diff / Slide Review NO; Basophils Absolute Auto 0 /uL (0-100); Basophils Percent Auto 0.2 % (0-2); Eosinophils Absolute Auto 0 /uL (0-450); Eosinophils Percent Auto 0.1 % (2-4); Hematocrit 44.4 % (41-53); Hemoglobin 14.7 g/dL (13.5-17.5); Lymphocytes Absolute Auto 1300 /uL (1100-4500); Lymphocytes Percent Auto 11.7 % (25-40); Mean Corpuscular HGB Conc 33.2 % (30-36); Mean Corpuscular Hemoglobin 27.3 PG (26-34); Mean Corpuscular Volume 82.2 fL (80-100); Monocytes Absolute Auto 400 /uL (0-900); Monocytes Percent Auto 3.7 % (3-14); Neutrophils Absolute Auto 9300 /uL (1500-7000); Neutrophils Percent Auto 84.3 % (50-75); Platelet Count 248 X10^3/uL (150-400); Red Cell Distribution Width 13.7 % (11.6-14.8); White Blood Cell Count 11.1 X10^3/uL (4.5-11.0)
[2023-10-19 11:30] LABS: INR 1.1 (0.9-1.3); Prothrombin Time 12.4 SECONDS (9.4-12.5)
[2023-10-19 11:34] LABS: Alanine Aminotransferase 16 IU/L (<50); Albumin 4.9 g/dL (3.5-5.0); Albumin Globulin Ratio 1.4 (1.0-2.8); Alkaline Phosphatase 76 U/L (38-126); Aspartate Aminotransferase 23 IU/L (17-59); BUN Creatinine Ratio 16.3 (6-22); Bilirubin Total 0.7 mg/dL (0.2-1.3); Blood Urea Nitrogen 13 mg/dL (9-20); Calcium 10.3 mg/dL (8.4-10.2); Carbon Dioxide 28 mmol/L (22-32); Chloride 103 mmol/L (98-107); Estimated Glomerular Filt Rate > 60 mL/min (>60); Globulin 3.5 g/dL (1.7-4.1); Glucose 105 mg/dL (70-100); HEMOLYSIS < 15 (0-50); Lipase 69 U/L (23-300); Potassium 3.8 mmol/L (3.4-5.1); Sodium 141 mmol/L (137-145); Total Protein 8.4 g/dL (6.3-8.2)
--- NOTE | 2023-10-19 11:44 | DI.US.S_ITS ---
PROCEDURE: US ABDOMEN LIMITED INDICATIONS: ruq pain. TECHNIQUE: Real-time scanning was performed of the abdominal and retroperitoneal organs, with image documentation. COMPARISON: None. FINDINGS: Liver: Liver is normal in size and homogeneous in echotexture. Gallbladder: No gallstones. No wall thickening. No pericholecystic edema. Negative sonographic Rahman's sign. Biliary ducts: Intrahepatic bile ducts are non-dilated. Extrahepatic bile duct caliber measures 6 mm. Normal is 6-7 mm or less in diameter, or 10 mm or less post-cholecystectomy. Pancreas: Visualized portions of the pancreas are sonographically normal. Miscellaneous: No free abdominal fluid. IMPRESSION: No sonographic abnormality in the right upper quadrant. Dictated by: Darvin Gonzalez M.D. on 10/19/2023 at 12:28 Approved by: Darvin Gonzalez M.D. on 10/19/2023 at 12:29
--- NOTE | 2023-10-19 11:51 | ED_ITS ---
HPI - Abdominal Pain General Chief Complaint: Abdominal Pain Stated Complaint: upper ABD pain/ nausea/ heavy head Time Seen by Provider: 10/19/23 11:36 Source: patient Mode of arrival: Ambulatory History of Present Illness HPI narrative: Patient is a 57-year-old healthy male who presents today with upper abdominal pain. It has been ongoing off and on for about a week. Sometimes on the left sometimes on the right. He sometimes feels nauseous no vomiting. He is able to eat. No fever or chills. Denies any chest pain. Related Data Home Medications Medication Instructions Recorded Confirmed No Known Home Medications 10/19/23 10/19/23 Allergies Allergy/AdvReac Type Severity Reaction Status Date / Time bee venom protein (honey bee) Allergy Severe Difficulty Verified 10/19/23 10:56 Breathing Patient History Medical History Anxiety (2017) Hepatitis HTN (hypertension) Allergies (~1987) Carpal tunnel syndrome (~1992) Chicken pox Osteoarthritis of lumbar spine Osteoarthritis of right hip Seasonal allergies HSV (herpes simplex virus) infection (~1995) Surgical History History of right hip replacement Hx of tonsillectomy Anesthesia History of carpal tunnel release (~1991) History of appendectomy (~1995) Family History Mother Brain aneurysm Grandfather No problems noted. Social History household members: significant other Smoking Status: Never smoker alcohol intake: current Smoking Status: Never smoker alcohol intake frequency: holidays/special occasions only Substance Use Type: does not use Exam Initial Vital Signs Initial Vital Signs: Vital Signs Temperature 97.2 F L 10/19/23 10:53 Pulse Rate 75 10/19/23 10:53 Respiratory Rate 14 10/19/23 10:53 Blood Pressure 210/98 H 10/19/23 10:53 Pulse Oximetry 100 10/19/23 10:53 Oxygen Delivery Method Room Air 10/19/23 10:53 GENERAL: Alert pleasant well-appearing 57-year-old male and in no acute distress. HEENT: Head atraumatic,EOMI, pupils reactive, face symmetric, moist mucous membranes CARDIOVASCULAR: Regular rate and rhythm without murmurs, rubs or gallops. RESPIRATORY: Breath sounds equal bilaterally, no wheezes rales or rhonchi. ABDOMEN: Soft, mild epigastric pain negative sign mild right upper quadrant pain no guarding no rebound EXTREMITIES: Normal range of motion, no clubbing or edema. Neurovascularly intact NEUROLOGICAL: Alert and oriented x4. SKIN: Warm, dry, no laceration, no petechiae, no rashes or lesions. Course Orders Ordered: ED Orders 10/19/23 10:57 EKG-12 Lead Stat 10/19/23 11:00 Complete Blood Count AUTO DIFF Stat Comprehensive Metabolic Panel Stat Lipase Stat Prothrombin Time INR Stat 10/19/23 11:44 US abdomen limited Stat 10/19/23 12:40 Urine Microscopic Stat Discontinued Medications Ondansetron HCl (Ondansetron 4 Mg Odt) 4 mg PO NOW PRN PRN Reason: Nausea And Vomiting Ondansetron HCl (Ondansetron 4 Mg/2 Ml Inj) 4 mg IV NOW PRN PRN Reason: Nausea And Vomiting Vital Signs Vital signs: Vital Signs - 8 hr 10/19/23 10:53 10/19/23 11:00 10/19/23 11:02 Temperature 97.2 F L Pulse Rate 75 67 Respiratory Rate 14 27 H Blood Pressure 210/98 H 196/89 H Pulse Oximetry 100 Oxygen Delivery Method Room Air 10/19/23 11:02 10/19/23 11:30 10/19/23 11:30 Temperature Pulse Rate 69 61 Respiratory Rate 16 17 Blood Pressure 164/82 H Pulse Oximetry 99 99 Oxygen Delivery Method 10/19/23 12:00 10/19/23 12:00 10/19/23 12:30 Temperature Pulse Rate 58 L Respiratory Rate 16 Blood Pressure 146/76 H 147/79 H Pulse Oximetry 98 Oxygen Delivery Method Room Air 10/19/23 12:30 10/19/23 13:00 10/19/23 13:00 Temperature Pulse Rate 61 58 L Respiratory Rate 18 16 Blood Pressure 129/75 Pulse Oximetry 99 98 Oxygen Delivery Method MDM - Abdominal Pain Lab Data 10/19/23 11:00 10/19/23 11:00 Labs: Lab Results 10/19/23 10/19/23 Range/Units 11:00 12:40 WBC 11.1 H (4.5-11.0) X10^3/uL RBC 5.40 (4.5-5.9) X10^6/uL Hgb 14.7 (13.5-17.5) g/dL Hct 44.4 (41-53) % MCV 82.2 (80-100) fL MCH 27.3 (26-34) PG MCHC 33.2 (30-36) % RDW 13.7 (11.6-14.8) % Plt Count 248 (150-400) X10^3/uL Neut % (Auto) 84.3 H (50-75) % Lymph % (Auto) 11.7 L (25-40) % Schley % (Auto) 3.7 (3-14) % Eos % (Auto) 0.1 L (2-4) % Baso % (Auto) 0.2 (0-2) % Neut # (Auto) 9300 H (0568-1532) /uL Lymph # (Auto) 1300 (2801-1178) /uL Schley # (Auto) 400 (0-900) /uL Eos # (Auto) 0 (0-450) /uL Baso # (Auto) 0 (0-100) /uL PT 12.4 (9.4-12.5) SECONDS INR 1.1 (0.9-1.3) Sodium 141 (137-145) mmol/L Potassium 3.8 (3.4-5.1) mmol/L Chloride 103 (98-107) mmol/L Carbon Dioxide 28 (22-32) mmol/L BUN 13 (9-20) mg/dL Creatinine 0.80 (0.66-1.25) mg/dL Estimated GFR > 60 (>60) mL/min BUN/Creatinine Ratio 16.3 (6-22) Glucose 105 H (70-100) mg/dL Calcium 10.3 H (8.4-10.2) mg/dL Total Bilirubin 0.7 (0.2-1.3) mg/dL AST 23 (17-59) IU/L ALT 16 (<50) IU/L Alkaline Phosphatase 76 (38-126) U/L Total Protein 8.4 H (6.3-8.2) g/dL Albumin 4.9 (3.5-5.0) g/dL Globulin 3.5 (1.7-4.1) g/dL Albumin/Globulin Ratio 1.4 (1.0-2.8) Lipase 69 (23-300) U/L Urine RBC 10-30/hpf H (0-5/HPF) Urine WBC 0-1/hpf (0-5/HPF) Ur Squamous Epith Cells 0-1 /hpf (0-5/HPF) Urine Bacteria None seen (None) Ur Culture Indicated? Cult not indicated Point of care testing: Urine Dip Bedside Urine Glucose Negative Bedside Urine Bilirubin - Negative Bedside Urine Ketone - Negative Urine Specific [place] 1.015 Bedside Urine Occult Blood +++ Bedside Urine pH 6.0 Bedside Urine Protein - Negative Bedside Urine Urobilinogen - Negative Bedside Urine Nitrite - Negative Bedside Urine Leukocytes - Negative Esterase Imaging Data US - abdomen: Radiologist's Impression: [address] [address] Ultrasound Report Signed Patient: Yung Figueroa MR#: [id number] : 1965 Acct:[id number] Age/Sex: 57 / M Date of Service: 10/19/23 Loc: ED Accession Number: [id number] Procedure: US abdomen limited Ordering Provider: Dora Cavanaugh D.O. PROCEDURE: US ABDOMEN LIMITED INDICATIONS: ruq pain. TECHNIQUE: Real-time scanning was performed of the abdominal and retroperitoneal organs, with image documentation. COMPARISON: None. FINDINGS: Liver: Liver is normal in size and homogeneous in echotexture. Gallbladder: No gallstones. No wall thickening. No pericholecystic edema. Negative sonographic Rahman's sign. Biliary ducts: Intrahepatic bile ducts are non-dilated. Extrahepatic bile duct caliber measures 6 mm. Normal is 6-7 mm or less in diameter, or 10 mm or less post-cholecystectomy. Pancreas: Visualized portions of the pancreas are sonographically normal. Miscellaneous: No free abdominal fluid. IMPRESSION: No sonographic abnormality in the right upper quadrant. Dictated by: Darvin Gonzalez M.D. on 10/19/2023 at 12:28 ECG Data Interpretation: Normal sinus rhythm rate 60 MD interval 160 QRS [address] changes no T- wave inversions MDM Narrative Medical decision making narrative: Patient 57-year-old male presents today upper abdominal discomfort off and on for about a week. Work has been reviewed WBC 11.1 no anemia normal electrolytes normal kidney function no evidence pancreatitis Ultrasound reviewed does not show any abnormality Patient has been reexamined abdomen is soft minimally tender. He is not required anything here for pain or nausea. Abdominal exam is fairly benign I do not see need for CT imaging at this time. At this time recommend supportive care outpatient follow-up. Return as needed. Discharge Plan Departure Patient Disposition: Home Clinical Impression: Abdominal pain Instructions: DI for Abdominal Pain-Adult Activity Restrictions/Additional Instructions: *You have been diagnosed with abdominal pain *What to do: At this time continue to eat and drink as tolerated. If pain worsens or changes may require repeat evaluation and possibly a CT scan *Continue to take medications as directed Tylenol Motrin as needed *Follow up with your primary care provider in 2-3 days or call [phone] *Return to ER if you should have increasing pain nausea vomiting weakness or any new, worsening or concerning symptoms Prescriptions: No Action No Known Home Medications Referrals: Boubacar Coffman MD [Primary Care Provider] - Stand Alone Forms: Patient Portal/API
[2023-10-19 14:30] LABS: Bacteria Urine None Seen; Culture Indicated Urine Cult Not Indicated; RBC Urine 10-30/HPF (0-5/HPF); Squamous Epithelial Cell Urine 0-1 /HPF (0-5/HPF); WBC Urine 0-1/HPF (0-5/HPF)
== END 2023-10-19 13:20 | disposition home or self-care (01) ==
PROVIDERS: Emergency Provider Emergency Medicine; Family Provider Family Medicine; PCP Family Medicine
DX: R10.11 Right upper quadrant pain (principal)
CPT/HCPCS: 36415; 76705; 80053; 81003; 81015; 83690; 85025; 85610; 93005; 99284

== ENCOUNTER → 2023-10-27 17:50 | Outpatient (CLI) | payer OTHER, SELFPAY ==
[2021-12-03 12:38] VITALS: BMI 26.4
[2023-10-27 18:28] LABS: Appearance Urine UA SL CLOUDY; Bilirubin Urine UA NEGATIVE (NEGATIVE); Color Urine UA YELLOW; Glucose Urine UA NEGATIVE (Negative); Ketones Urine UA NEGATIVE (NEGATIVE); Leukocyte Esterase Urine UA NEGATIVE (NEGATIVE); Nitrite Urine UA NEGATIVE (Negative); Occult Blood Urine UA 3+ (Negative); Protein Urine UA NEGATIVE (Negative); Urobilinogen Urine UA 0.2 E.U./dL (0.2); pH Urine UA 6.5 (4.5-8.0)
[2023-10-27 18:41] LABS: RBC Urine >100/HPF (0-5/HPF)
[2023-10-27 18:42] LABS: Bacteria Urine None Seen; Culture Indicated Urine Cult Not Indicated; Squamous Epithelial Cell Urine 0-1 /HPF (0-5/HPF); WBC Urine None Seen (0-5/HPF)
[2023-10-27 19:54] LABS: Urine N gonorrhoeae NOT DETECTED
[2023-10-27 19:57] LABS: Urine Chlamydia NOT DETECTED
== END ==
PROVIDERS: Family Provider Family Medicine; PCP Family Medicine; Referring Provider Registered Nurse Diabetes Educator; Visit Provider Registered Nurse Diabetes Educator
DX: R31.29 Other microscopic hematuria (principal); R30.0 Dysuria
CPT/HCPCS: 36415; 81001; 87491; 87591

== ENCOUNTER → 2023-11-25 08:52 | Outpatient (CLI) | payer OTHER, SELFPAY ==
[2021-12-03 12:38] VITALS: BMI 26.4
[2023-11-25 09:21] LABS: Appearance Urine UA CLEAR; Bilirubin Urine UA NEGATIVE (NEGATIVE); Color Urine UA YELLOW; Glucose Urine UA NEGATIVE (Negative); Ketones Urine UA NEGATIVE (NEGATIVE); Leukocyte Esterase Urine UA NEGATIVE (NEGATIVE); Nitrite Urine UA NEGATIVE (Negative); Occult Blood Urine UA NEGATIVE (Negative); Protein Urine UA NEGATIVE (Negative); Specific Gravity Urine UA 1.015 (1.000-1.035); Urobilinogen Urine UA 0.2 E.U./dL (0.2); pH Urine UA 5.5 (4.5-8.0)
[2023-11-25 09:28] LABS: Bacteria Urine None Seen; Culture Indicated Urine Cult Not Indicated; RBC Urine None Seen (0-5/HPF); Squamous Epithelial Cell Urine 0-1 /HPF (0-5/HPF); Urine Volume 10mL (spun); WBC Urine 0-1/HPF (0-5/HPF)
[2023-11-25 10:11] LABS: Prostate Specific Antigen Scrn 1.46 ng/mL (0.1-4.0)
== END ==
PROVIDERS: Family Provider Family Medicine; PCP Family Medicine; Referring Provider Registered Nurse Diabetes Educator; Visit Provider Registered Nurse Diabetes Educator
DX: Z12.5 Encounter for screening for malignant neoplasm of prostate (principal); R31.29 Other microscopic hematuria
CPT/HCPCS: 36415; 81001; G0103

== ENCOUNTER → 2024-01-05 10:30 | Outpatient (CLI) | payer OTHER, SELFPAY ==
[2021-12-03 12:38] VITALS: BMI 26.4
[2024-01-05 10:56] LABS: Add Manual Diff / Slide Review NO; Basophils Absolute Auto 0 /uL (0-100); Basophils Percent Auto 0.8 % (0-2); Eosinophils Absolute Auto 200 /uL (0-450); Eosinophils Percent Auto 2.7 % (2-4); Hematocrit 41.7 % (41-53); Hemoglobin 13.8 g/dL (13.5-17.5); Lymphocytes Absolute Auto 1200 /uL (1100-4500); Lymphocytes Percent Auto 21.1 % (25-40); Mean Corpuscular HGB Conc 33.1 % (30-36); Mean Corpuscular Hemoglobin 27.1 PG (26-34); Mean Corpuscular Volume 81.9 fL (80-100); Monocytes Absolute Auto 400 /uL (0-900); Monocytes Percent Auto 6.4 % (3-14); Neutrophils Absolute Auto 4100 /uL (1500-7000); Platelet Count 240 X10^3/uL (150-400); Red Blood Cell Count 5.09 X10^6/uL (4.5-5.9); Red Cell Distribution Width 14.3 % (11.6-14.8); White Blood Cell Count 5.9 X10^3/uL (4.5-11.0)
[2024-01-05 11:28] LABS: Alanine Aminotransferase 16 IU/L (<50); Albumin 4.7 g/dL (3.5-5.0); Albumin Globulin Ratio 1.7 (1.0-2.8); Alkaline Phosphatase 66 U/L (38-126); Aspartate Aminotransferase 23 IU/L (17-59); BUN Creatinine Ratio 24.7 (6-22); Bilirubin Total 0.6 mg/dL (0.2-1.3); Blood Urea Nitrogen 20 mg/dL (9-20); Calcium 9.7 mg/dL (8.4-10.2); Carbon Dioxide 28 mmol/L (22-32); Chloride 108 mmol/L (98-107); Cholesterol 193 mg/dL (140-199); Estimated Glomerular Filt Rate > 60 mL/min (>60); Globulin 2.7 g/dL (1.7-4.1); Glucose 90 mg/dL (70-100); HDL Cholesterol 49 mg/dL (40-60); HEMOLYSIS < 15 (0-50); LDL Cholesterol Calculated 123 mg/dL (<100); Potassium 4.4 mmol/L (3.4-5.1); Sodium 142 mmol/L (137-145); Total Protein 7.4 g/dL (6.3-8.2); Triglycerides 103 mg/dL (35-150)
[2024-01-05 13:25] LABS: Creatinine Urine Random 168.9 mg/dL
[2024-01-05 13:33] LABS: Microalbumi Creatinin Ratio Ur 5.9 ug/mg CR (<30)
[2024-01-06 08:10] LABS: Apolipoprotein B 95 mg/dL (<90)
[2024-01-06 20:01] LABS: Calcium 9.6 mg/dL (8.7-10.2); Parathyroid Hormone, Intact 24 pg/mL (15-65)
[2024-01-11 18:35] LABS: Ca oxalate dihydrate 40 % (.); Ca oxalate monohydr 60 % (.)
== END ==
PROVIDERS: Family Provider Family Medicine; PCP Family Medicine; Referring Provider Family Medicine; Visit Provider Family Medicine
DX: I10 Essential (primary) hypertension (principal); N20.0 Calculus of kidney
CPT/HCPCS: 36415; 80053; 80061; 82043; 82172; 82310; 82365; 82570; 83970; 85025

== ENCOUNTER → 2025-07-20 10:39 | Outpatient (CLI) | payer OTHER, SELFPAY ==
[2021-12-03 12:38] VITALS: BMI 26.4
--- NOTE | 2025-07-20 10:41 | DI.RAD.S_ITS ---
PROCEDURE: XR LUMBAR SPINE 3V INDICATIONS: subacute low back pain TECHNIQUE: 3 views of the lumbar spine were acquired. COMPARISON: [facility], , XR LUMBAR SPINE 2-3V, 06/19/2021, 14:02. FINDINGS: Moderate degenerative changes lower thoracic, lumbar spine with disc space narrowing, osteophytes and facet osseous hypertrophic changes most notably at L4-5 and L5- S1. No radiographic evidence of fracture or subluxation. IMPRESSION: Degenerative changes. If symptoms persist or worsen, or there is high clinical suspicion of lumbar abnormality, MRI could be performed. Dictated by: Steven Tsai M.D. on 07/21/2025 at 13:58 Approved by: Steven Tsai M.D. on 07/21/2025 at 13:59
[2025-07-20 11:49] LABS: Add Manual Diff / Slide Review NO; Hematocrit 41.8 % (41-53); Hemoglobin 14.0 g/dL (13.5-17.5); Lymphocytes Absolute Auto 1300 /uL (1100-4500); Mean Corpuscular HGB Conc 33.4 % (30-36); Mean Corpuscular Hemoglobin 27.4 PG (26-34); Mean Corpuscular Volume 82.0 fL (80-100); Platelet Count 257 X10^3/uL (150-400)
[2025-07-20 12:17] LABS: Alanine Aminotransferase 16 IU/L (<50); Albumin 4.8 g/dL (3.5-5.0); Albumin Globulin Ratio 1.7 (1.0-2.8); Alkaline Phosphatase 65 U/L (38-126); Blood Urea Nitrogen 19 mg/dL (9-20); Calcium 9.6 mg/dL (8.4-10.2); Carbon Dioxide 27 mmol/L (22-32); Chloride 104 mmol/L (98-107); Cholesterol 189 mg/dL (140-199); Estimated Glomerular Filt Rate > 60 mL/min (>60); Globulin 2.8 g/dL (1.7-4.1); Glucose 95 mg/dL (70-99); HDL Cholesterol 55 mg/dL (40-60); HEMOLYSIS < 15 (0-50); Potassium 4.5 mmol/L (3.4-5.1); Sodium 140 mmol/L (137-145); Total Protein 7.6 g/dL (6.3-8.2); Triglycerides 106 mg/dL (35-150)
[2025-07-20 12:45] LABS: TSH w/ Reflex to FT4 1.57 uIU/mL (0.47-4.68)
== END ==
PROVIDERS: PCP Family Medicine; Referring Provider Family Medicine; Visit Provider Family Medicine
DX: Z96.641 Presence of right artificial hip joint (principal); M47.816 Spondylosis without myelopathy or radiculopathy, lumbar region; Z12.5 Encounter for screening for malignant neoplasm of prostate; N20.0 Calculus of kidney; F41.9 Anxiety disorder, unspecified; I10 Essential (primary) hypertension; M51.369 Other intervertebral disc degeneration, lumbar region without mention of lumbar back pain or lower extremity pain
CPT/HCPCS: 36415; 72100; 80053; 80061; 84443; 85025; G0103